=== PATIENT | male | born 1980 | race Caucasian/White ===

== ENCOUNTER 2017-06-15 09:02 | Observation (INO) | payer BC ==
[2017-06-15] MEDS ORDERED: ASPIRIN 81 MG CHEWABLE TABLET ONE (09:27)
--- NOTE | 2017-06-15 09:38 | RAD REPORT ---
EXAM DESCRIPTION: RAD - Chest Single View - 06/15/2017 9:28 am CLINICAL HISTORY: Chest pain. COMPARISON: 02/19/2017 FINDINGS: Portable technique limits examination quality. The lungs are grossly clear. The heart is normal in size. No displaced fractures. IMPRESSION: No acute intrathoracic process suspected.
--- NOTE | 2017-06-15 09:49 | EKG ---
Test Date: 2017-06-15 Test Time: 09:37:11 Applications Engineer: JASS MEASUREMENT RESULTS: Intervals: Rate: 105 VT: 140 QRSD: 86 QT: 342 QTc: 452 [place]: P: 34 VT: 140 QRS: 13 T: 16 INTERPRETIVE STATEMENTS: Sinus tachycardia Otherwise normal ECG Compared to ECG 08/19/2015 01:58:03 Sinus rhythm no longer present Sinus arrhythmia no longer present Electronically Signed On 06-15-17 09:48:43 CDT by Ez Salmon
[2017-06-15 09:50] LABS: Absolute Monocytes 0.6 K/uL (0.1-1.3); Absolute Neutrophil 4.5 K/uL (1.8-8.0); Basophils % 0.8 % (0-1.3); Hematocrit 44.8 % (39.6-49.0); Lymphocytes % 27.6 % (15.3-44.8); MCH 29.5 pg (27.0-35.0); MCV 90.3 fL (80-100); MPV 10.7 fL (7.6-11.3); Monocytes % 7.9 % (3.3-12.3); RBC Red Blood Cell Count 4.97 M/uL (4.33-5.43)
[2017-06-15 10:04] LABS: Bicarbonate 25 mEq/L (21-31); Glucose Level 102 mg/dL (65-120); Sodium Level 140 mEq/L (135-145)
[2017-06-15] MEDS ORDERED: NITROGLYCERIN 0.4 MG/TAB SL ONE (10:08)
[2017-06-15 10:10] LABS: ALT/SGPT 38 IU/L (10-60); AST/SGOT 24 IU/L (10-42); Albumin 4.2 g/dL (3.2-5.5); Alkaline Phosphatase 79 IU/L (42-121); BUN Blood Urea Nitrogen 19 mg/dL (6-20); Bilirubin Direct < 0.1 mg/dL (0-0.2); Bilirubin Total 0.4 mg/dL (0.3-1.2); Magnesium 1.9 mg/dL (1.8-2.5); Protein, Total 7.7 g/dL (6.0-8.3)
[2017-06-15 10:16] LABS: Protime INR 0.87
[2017-06-15] MEDS ORDERED: ACETAMINOPHEN 500 MG TAB PO PRN (11:37)
[2017-06-15] MEDS ORDERED: ONDANSETRON 4 MG/2 ML VIAL IV PRN (11:37)
--- NOTE | 2017-06-15 11:39 | EDPHYS ---
Physician Documentation [facility] Name: Kem Liz Age: 37 yrs Sex: Male : 1980 Arrival Date: 06/15/2017 Time: 09:03 Bed 8 Private MD: Johnathan Calle S ED Physician Pasha Silva HPI: 06/15 09:34 This 37 yrs old Male presents to ER via Wheelchair with complaints of Chest jr8 Pain. 09:34 The patient or guardian reports chest pain that is located primarily in the substernal jr8 area. The pain radiates to the left arm. Associated signs and symptoms: Pertinent positives: diaphoresis. The chest pain is described as squeezing. Duration: The patient or guardian reports a single episode, that is still ongoing. Modifying factors: The symptoms are alleviated by nothing. the symptoms are aggravated by activity. Severity of pain: At its worst the pain was moderate in the emergency department the pain is unchanged. The patient has not experienced similar symptoms in the past. The patient has not recently seen a physician. chest pain that started around 8 am this morning with radiation. Minimal relief with rest . Historical: - Allergies: 09:10 NKA; iw - Home Meds: 09:10 lisinopril 10 mg Oral tab 1 tab once daily [Active]; atorvastatin 10 mg Oral tab 1 tab iw once daily [Active]; - PMHx: 09:10 Hyperlipidemia; Hypertension; iw - PSHx: 09:10 right shoulder; iw - Immunization history:: Adult Immunizations not up to date. - Social history:: Smoking status: Patient/guardian denies using tobacco. ROS: 09:34 Eyes: Negative for injury, pain, redness, and discharge, ENT: Negative for injury, jr8 pain, and discharge, Neck: Negative for injury, pain, and swelling, Respiratory: Negative for shortness of breath, cough, wheezing, and pleuritic chest pain, Abdomen/GI: Negative for abdominal pain, nausea, vomiting, diarrhea, and constipation, Back: Negative for injury and pain, MS/Extremity: Negative for injury and deformity, Skin: Negative for injury, rash, and discoloration, Neuro: Negative for headache, weakness, numbness, tingling, and seizure. 09:34 Cardiovascular: Positive for chest pain, Negative for edema, orthopnea, palpitations, paroxysmal nocturnal dyspnea. Exam: 09:34 Eyes: Pupils equal round and reactive to light, extra-ocular motions intact. Lids and jr8 lashes normal. Conjunctiva and sclera are non-icteric and not injected. Cornea within normal limits. Periorbital areas with no swelling, redness, or edema. ENT: Nares patent. No nasal discharge, no septal abnormalities noted. Tympanic membranes are normal and external auditory canals are clear. Oropharynx with no redness, swelling, or masses, exudates, or evidence of obstruction, uvula midline. Mucous membranes moist. Neck: Trachea midline, no thyromegaly or masses palpated, and no cervical lymphadenopathy. Supple, full range of motion without nuchal rigidity, or vertebral point tenderness. No Meningismus. Respiratory: Lungs have equal breath sounds bilaterally, clear to auscultation and percussion. No rales, rhonchi or wheezes noted. No increased work of breathing, no retractions or nasal flaring. Abdomen/GI: Soft, non-tender, with normal bowel sounds. No distension or tympany. No guarding or rebound. No evidence of tenderness throughout. Back: No spinal tenderness. No costovertebral tenderness. Full range of motion. Skin: Warm, dry with normal turgor. Normal color with no rashes, no lesions, and no evidence of cellulitis. MS/ Extremity: Pulses equal, no cyanosis. Neurovascular intact. Full, normal range of motion. Neuro: Awake and alert, GCS 15, oriented to person, place, time, and situation. Cranial nerves II-XII grossly intact. Motor strength 5/5 in all extremities. Sensory grossly intact. Cerebellar exam normal. Normal gait. 09:34 Cardiovascular: Rate: tachycardic, Rhythm: regular, Pulses: Pulses are 2+ in right radial artery and left radial artery. Heart sounds: normal, normal S1and S2, no S3 or S4, no murmur, no rub, no gallop, Edema: is not appreciated, JVD: is not appreciated. Vital Signs: 09:10 BP 148 / 94; Pulse 115; Resp 18 S; Temp 98.1(TE); Pulse Ox 96% on R/A; Weight 113.4 kg; iw Height 5 ft. 11 in. (180.34 cm); Pain 7/10; 09:30 BP 154 / 104; Pulse 105; Resp 16 S; Pulse Ox 96% on R/A; jl7 10:00 BP 146 / 102; Pulse 96; Resp 16 S; Pulse Ox 95% on R/A; jl7 10:20 BP 131 / 81; Pulse 97; Resp 12; Pulse Ox 96% ; Pain 3/10; jl7 11:31 BP 131 / 84; Pulse 80; Resp 20 S; Pulse Ox 99% on R/A; jl7 09:10 Body Mass Index 34.87 (113.40 kg, 180.34 cm) iw MDM: 09:14 Patient medically screened. jr8 11:34 HEART Score: History: Highly Suspicious (2), ECG: Normal (0), Age: < or = 45 years (0), jr8 Risk Factors: 1 or 2 risk factors (1), [Hypercholesterolemia] [Hypertension]. 11:36 Data reviewed: vital signs, nurses notes, lab test result(s), EKG, radiologic studies, jr8 plain films, and as a result, I will admit patient. Data interpreted: Pulse oximetry: on room air is 99 %. Interpretation: normal. Counseling: I had a detailed discussion with the patient and/or guardian regarding: the historical points, exam findings, and any diagnostic results supporting the discharge/admit diagnosis, lab results, radiology results, the need for further work-up and treatment in the hospital. Physician consultation: Ekta Diaz MD was called at 11:37, was contacted at 11:37, regarding admission, to the telemetry unit. consult, patient's condition, and will see patient. 06/15 09:15 Order name: Ptt, Activated; Complete Time: 10:36 06/15 09:15 Order name: Basic Metabolic Panel; Complete Time: 10:10 06/15 09:15 Order name: BNP; Complete Time: 10:36 06/15 09:15 Order name: CBC with Diff; Complete Time: 10:10 06/15 09:15 Order name: LFT's; Complete Time: 10:10 06/15 09:15 Order name: Magnesium; Complete Time: 10:10 06/15 09:15 Order name: PT-INR; Complete Time: 10:36 06/15 09:15 Order name: Troponin (emerg Dept Use Only); Complete Time: 10:43 06/15 09:15 Order name: XRAY Chest (1 view); Complete Time: 09:38 rust 06/15 09:15 Order name: EKG; Complete Time: 09:15 rust 06/15 11:39 Order name: Echo with Doppler [facility] 06/15 11:39 Order name: Urinalysis [facility] 06/15 09:15 Order name: Cardiac monitoring; Complete Time: 09:20 rust 06/15 09:15 Order name: EKG - Nurse/Tech; Complete Time: 09:52 rust 06/15 09:15 Order name: IV Saline Lock; Complete Time: :52 rust 06/15 09:15 Order name: Labs collected and sent; Complete Time: : rust 06/15 09:15 Order name: O2 Per Protocol; Complete Time: 09:21 rust 06/15 09:15 Order name: O2 Sat Monitoring; Complete Time: 09:21 rust 06/15 11:39 Order name: Heart Healthy EDPR Administered Medications: 09:29 Drug: Aspirin Chewable Tablet 324 mg Route: PO; jl7 10:17 Follow up: Response: No adverse reaction jl7 10:11 Drug: Nitroglycerin 0.4 mg Route: Sublingual; jl7 10:16 Follow up: Response: No adverse reaction; Pain is decreased jl7 Disposition: 06/15/17 11:39 Hospitalization ordered by Ekta Diaz for Observation. Preliminary diagnosis is Chest pain, unspecified. - Bed requested for Telemetry/MedSurg (observation). - Status is Observation. pt - Condition is Stable. - Problem is new. - Symptoms have improved. UTI on Admission? No Addendum: 06/18/2017 06:10 Co-signature as Attending Physician, Pasha Silva MD Available for consultation at p s1 all times. . Signatures: Dispatcher [employer] EDPR Shandra Dai RN RN pt Charity Vyas RN Carlos Reis PA PA jr8 Willy Grimes RN RN jl7 Pasha Silva MD MD [facility] Juan Mccrary [facility]
--- NOTE | 2017-06-15 11:39 | ER ---
Nurse's Notes [facility] Name: Kem Liz Age: 37 yrs Sex: Male : 1980 Arrival Date: 06/15/2017 Time: 09:03 Bed 8 Private MD: Johnathan Calle S Diagnosis: Chest pain, unspecified Presentation: 06/15 09:06 Presenting complaint: Patient states: has had left sided chest pain X 1-2 hours iw constant, feels like squeezing pain, radiates to left arm, rates pain 7/10, denies cardiac hx. Transition of care: patient was not received from another setting of care. Onset of symptoms was June 15, 2017. Initial Sepsis Screen: Does the patient meet any 2 criteria? No. Patient's initial sepsis screen is negative. Does the patient have a suspected source of infection? No. Patient's initial sepsis screen is negative. Care prior to arrival: None. 09:06 Method Of Arrival: Wheelchair iw 09:06 Acuity: CHARLEEN 3 iw Historical: - Allergies: 09:10 NKA; iw - Home Meds: 09:10 lisinopril 10 mg Oral tab 1 tab once daily [Active]; atorvastatin 10 mg Oral tab 1 tab iw once daily [Active]; - PMHx: 09:10 Hyperlipidemia; Hypertension; iw - PSHx: 09:10 right shoulder; iw - Immunization history:: Adult Immunizations not up to date. - Social history:: Smoking status: Patient/guardian denies using tobacco. Screenin:23 Abuse screen: Denies threats or abuse. Denies injuries from another. Nutritional jl7 screening: No deficits noted. Tuberculosis screening: No symptoms or risk factors identified. Fall Risk IV access (20 points). Total Clark Fall Scale indicates No Risk (0-24 pts). Assessment: 09:23 General: Appears in no apparent distress. uncomfortable, Behavior is calm, cooperative, jl7 appropriate for age. Pain: Complains of pain in anterior aspect of left upper chest Pain radiates to left arm Pain currently is 5 out of 10 on a pain scale. at worst was 7 out of 10 on a pain scale. Quality of pain is described as squeezing, Pain began 30 min ago. Is intermittent. Neuro: Level of Consciousness is awake, alert, obeys commands, Oriented to person, place, time, situation. Cardiovascular: Heart tones S1 S2 present Patient's skin is warm and dry. Rhythm is sinus tachycardia. Respiratory: Reports shortness of breath Airway is patent Respiratory effort is even, unlabored, Respiratory pattern is regular, symmetrical, Breath sounds are clear bilaterally. the patient has mild shortness of breath. GI: No signs and/or symptoms were reported involving the gastrointestinal system. : No signs and/or symptoms were reported regarding the genitourinary system. EENT: No signs and/or symptoms were reported regarding the EENT system. Derm: Skin is pink, warm \T\ dry. Musculoskeletal: No signs and/or symptoms reported regarding the musculoskeletal system. 10:16 Reassessment: Patient states feeling better. Patient states symptoms have improved. jl7 11:15 Reassessment: No changes from previously documented assessment. Patient and/or family jl7 updated on plan of care and expected duration. Pain level reassessed. Patient is alert, oriented x 3, equal unlabored respirations, skin warm/dry/pink. Vital Signs: 09:10 BP 148 / 94; Pulse 115; Resp 18 S; Temp 98.1(TE); Pulse Ox 96% on R/A; Weight 113.4 kg; iw Height 5 ft. 11 in. (180.34 cm); Pain 7/10; 09:30 BP 154 / 104; Pulse 105; Resp 16 S; Pulse Ox 96% on R/A; jl7 10:00 BP 146 / 102; Pulse 96; Resp 16 S; Pulse Ox 95% on R/A; jl7 10:20 BP 131 / 81; Pulse 97; Resp 12; Pulse Ox 96% ; Pain 3/10; jl7 11:31 BP 131 / 84; Pulse 80; Resp 20 S; Pulse Ox 99% on R/A; jl7 09:10 Body Mass Index 34.87 (113.40 kg, 180.34 cm) iw ED Course: 09:03 Patient arrived in ED. mr 09:03 Johnathan Calle MD is Private Physician. mr 09:09 Triage completed. iw 09:10 Arm band placed on. iw 09:14 Carlos Fuentes PA is PHCP. jr8 09:14 Pasha Silva MD is Attending Physician. jr8 09:23 Willy Grimes RN is Primary Nurse. jl7 09:23 Patient has correct armband on for positive identification. Placed in gown. Bed in low jl7 position. Call light in reach. Side rails up X 1. athletic monitor on. Pulse ox on. NIBP on. 09:23 Patient maintains SpO2 saturation greater than 95% on room air. jl7 09:26 X-ray completed. Portable x-ray completed in exam room. Patient tolerated procedure sw well. 09:27 XRAY Chest (1 view) In Process Unspecified. EDMS 09:30 Initial lab(s) drawn, by me, sent to lab. jb1 09:48 EKG done, by shift lab technician. reviewed by Carlos TELLES. at1 09:51 Inserted saline lock: 20 gauge in right antecubital area, using aseptic technique. jb1 Blood collected. 11:37 Ekta Diaz MD is Hospitalizing Provider. jr8 Administered Medications: 09:29 Drug: Aspirin Chewable Tablet 324 mg Route: PO; jl7 10:17 Follow up: Response: No adverse reaction jl7 10:11 Drug: Nitroglycerin 0.4 mg Route: Sublingual; jl7 10:16 Follow up: Response: No adverse reaction; Pain is decreased jl7 Outcome: 11:39 Decision to Hospitalize by Provider. jr8 12:42 Admitted to Tele accompanied by tech, via wheelchair, with chart. iw 12:52 Patient left the ED. pt Signatures: Dispatcher [employer] EDKem Porras jb1 Shandra Dai, RN RN pt Susie Wei Irene, RN Carlos Reis PA PA jr8 Tanya gutierrez, marketing officer EKG Tania Duncan Jahala, RN RN jl7
--- NOTE | 2017-06-15 14:31 | ECHO ---
HEIGHT: 5 ft 11 in WEIGHT: 258 lb 0 oz DATE OF STUDY: 06/15/[address]: Ekta Diaz MD 2-DIMENSIONAL: YES M.MODE: YES DOPPLER: YES COLOR FLOW: YES TDS: NO PORTABLE: NO DEFINITY: NO BUBBLE STUDY: NO DIAGNOSIS: CHEST PAIN, SHORTNESS OF BREATH CARDIAC HISTORY: CATHERIZATION: NO SURGERY: NO PROSTHETIC VALVE: NO PACEMAKER: NO MEASUREMENTS (cm) DIASTOLIC (NORMALS) SYSTOLIC (NORMALS) IVSd 1.0 (0.6-1.2) LA Diam 3.6 (1.9-4.0) LVEF 54% LVIDd 4.9 (3.5-5.7) LVIDs 3.5 (2.0-3.5) %FS 28% LVPWd 0.9 (0.6-1.2) Ao Diam 3.3 (2.0-3.7) 2 DIMENSIONAL ASSESSMENT: RIGHT ATRIUM: NORMAL LEFT ATRIUM: NORMAL RIGHT VENTRICLE: NORMAL LEFT VENTRICLE: NORMAL TRICUSPID VALVE: NORMAL MITRAL VALVE: NORMAL PULMONIC VALVE: NORMAL AORTIC VALVE: NORMAL PERICARDIAL EFFUSION: NONE AORTIC ROOT: NORMAL LEFT VENTRICULAR WALL MOTION: NORMAL DOPPLER/COLOR FLOW: NORMAL COMMENTS: NORMAL 2D ECHOCARDIOGRAM WITH DOPPLER. TECHNOLOGIST: Ailin COLEMAN
--- NOTE | 2017-06-15 14:35 | TREADMILL ---
70% H.R.: 127 85% H.R.: 154 90% H.R.: 163 100% H.R.: 181 DX: CHEST PAIN, SHORTNESS OF BREATH Date of Study: 06/15/2017 Ht: 5' 11 " Wt: 258 lb 0 oz Consulting Physician: RANGEL MEDICATIONS: BLOOD PRESSURE MEDICATION. HISTORY: 37 YEAR OLD MALE WITH COMPLAINTS OF CHEST PAIN. HISTORY OF HYPERTENSION, HIGH CHOLESTEROL, FORMER SMOKER. PHYSICIAL EXAMINATION: RESTING B.P.: 152/113 RESTING H.R.: 87 RESTING EKG: NORMAL PROTOCOL: MARÍA ROUTINE EXERCISE TIME: 6:49 MAXIMUM HEART RATE: 160 % OF PREDICTED B.P. AT PEAK STRESS: 161/95 H.R. AT 1 MINUTE POST EXERCISE: 136 IMPRESSION: ROUTINE MARÍA STRESS TEST STOPPED DUE TO FATIGUE AND TARGET HEART RATE BEING REACHED. NO CHEST PAIN. NO SUPRAVENTRICULAR TACHYCARDIA. NO VENTRICULAR TACHYCARDIA. NO ST DEPRESSION. NORMAL STRESS TEST.
--- NOTE | 2017-06-15 17:33 | P.SSS ---
Patient History Date of Service: 06/15/17 Primary Care Provider: Dr Hui Reason for admission: Chest Pain History of Present Illness: 37-year-old male with known history of hypertension and hyperlipidemia who is noncompliant with his medication who presented to the ED complaining of having some chest pain. Patient stated that around 8 o'clock he was trying to move certain things in his car and started noticing that he had chest pain that was pressure-like and radiated to his right arm along with sweating. Patient stated that the pain was 7/10 and became 10/10 on presentation to the ER. Patient was given nitroglycerin in the ER and the pain going down to 2 here in the hospital. On presentation to the ER patient also had blood pressure that was elevated to 154/104 and heart rate of 105 to 115. Patient was thus referred for admission to the medical team for further management. Patient's initial EKG and troponins were negative in the ER. Patient denies having a history of smoking alcohol and drugs at this time. Allergies No Known Allergies Allergy (Unverified 08/20/15 03:59) Home Medications: Aspirin 81 mg PO DAILY #30 tab.chew 06/15/17 Atorvastatin Calcium [Lipitor] 40 mg PO BEDTIME #30 tab 06/15/17 Lisinopril 5 mg PO DAILY #30 tablet 06/15/17 Metoprolol Tartrate [Lopressor*] 12.5 mg PO [id number] #30 tab 06/15/17 - Past Medical/Surgical History Has patient received pneumonia vaccine in the past: No Diabetic: No -: HTN -: high cholesterol -: shoulder surgery - Family History Father -: Cancer Mother -: Lung disease - Social History Smoking Status: Former smoker Alcohol use: Yes CD- Drugs: No Place of Residence: Home Review of Systems 10-point ROS is otherwise unremarkable Physical Examination - Vital Signs Temperature: 98.7 F Blood Pressure: 102/64 Pulse: 72 Respirations: 23 Pulse Ox (%): 98 - Physical Exam General: Alert, In no apparent distress HEENT: Atraumatic, PERRLA, Mucous membr. moist/pink, EOMI, Sclerae nonicteric Neck: Supple, 2+ carotid pulse no bruit, No LAD, Without JVD or thyroid abnormality Respiratory: Clear to auscultation bilaterally, Normal air movement Cardiovascular: Regular rate/rhythm, Normal S1 S2 Gastrointestinal: Normal bowel sounds, No tenderness Musculoskeletal: No tenderness Integumentary: No rashes Neurological: Normal gait, Normal speech, Normal strength at 5/5 x4 extr, Normal tone, Normal affect Lymphatics: No axilla or inguinal lymphadenopathy - Studies Laboratory Data (last 24 hrs) 06/15/17 09:30: WBC 7.2, Hgb 14.7, Hct 44.8, Plt Count 163 06/15/17 09:30: B-Natriuretic Peptide < 10 06/15/17 09:30: Sodium 140, Potassium 4.0, BUN 19, Creatinine 0.88, Glucose 102 , Magnesium 1.9, Total Bilirubin 0.4, AST 24, ALT 38, Alkaline Phosphatase 79 06/15/17 09:30: PT 10.2, INR 0.87, APTT 31.0 - Diagnosis (Problem(s)) (1) Chest pain Status: Resolved Qualifiers: Chest pain type: other chest pain Qualified Code(s): R07.89 - Other chest pain; R07.8 - Other chest pain (2) HTN (hypertension) Status: Chronic Qualifiers: Hypertension type: essential hypertension Qualified Code(s): I10 - Essential (primary) hypertension (3) Hyperlipidemia Status: Chronic Qualifiers: Hyperlipidemia type: mixed hyperlipidemia Qualified Code(s): E78.2 - Mixed hyperlipidemia Treatment Summary: Overall during the hospital stay patient remained stable The patient was admitted to the hospital for ACS rule out. Patient had an echocardiogram done along with stress test treadmill. Both of which were within normal limits. After the initial nitroglycerin tablets patient blood pressure also normalized and heart rate was back to less than 100. Patient EKG still remain normal and troponin x2 was negative. At that time the decision was made to discharge the patient under stable condition. Patient was asked to take aspirin, Lipitor 40 mg, metoprolol 12.5 mg daily, lisinopril 5 mg daily from now on. Patient was educated extensively on medication compliance and was asked to follow up with primary care doctor in about 1-2 weeks. Patient demonstrated understanding and thus was discharged home under stable condition - Disposition Disposition: ROUTINE DISCHARGE Condition: GOOD Patient Discharge Instructions: Please f/u with PCP in 1 to 2 weeks post discharge. You were admitted to the hospital for Chest pain and had echo and stress test done. Both of which were Negative. New medication. ASA 81mg daily. Lipitor 40mg daily. metoprolol 12.5mg daily. Lisinopril 5mg daily. You will f/u with PCP and he will be adjusting your medication based on your BP in the office. Diet: Regular Activity: Ad david
[2017-06-15] MEDS ORDERED: ATORVASTATIN 40 MG TAB PO SCH (21:00)
[2017-06-16] MEDS ORDERED: METOPROLOL TAR 25 MG TAB PO SCH (06:00)
[2017-06-16] MEDS ORDERED: ASPIRIN EC 81 MG TAB PO SCH (09:00)
[2017-06-16 12:10] LABS: A1c Component 0.57 mg/dL; Hemoglobin A1c 5.7 % (4-6.0)
== END 2017-06-15 15:42 | disposition home or self-care (01) ==
LOC: ER 09:02 → ERHOLD 11:40 → 2ND 13:21
PROVIDERS: ADMIT Family Medicine; ATTEND Family Medicine
DX: R07.9 Chest pain, unspecified (principal); I10 Essential (primary) hypertension; E78.5 Hyperlipidemia, unspecified; Z91.14 Patient's other noncompliance with medication regimen; Z79.82 Long term (current) use of aspirin; Z87.891 Personal history of nicotine dependence
CPT/HCPCS: 36415; 71045; 80048; 80061; 80076; 83036; 83735; 83880; 84484; 85025; 85610; 85730; 93005; 93017; 93306; 99285; G0378

== ENCOUNTER 2017-07-21 16:00 | Emergency (ER) | payer BC ==
[2017-07-21] MEDS ORDERED: LIDOCAINE 1% 20 ML MDV ONE (20:15)
[2017-07-21] MEDS ORDERED: TETANUS & DIPHTHERIA TOX,ADULT 0.5 ML VIAL ONE (20:15)
--- NOTE | 2017-07-21 21:22 | ER ---
Nurse's Notes [facility] Name: Kem Liz Age: 37 yrs Sex: Male : 1980 Arrival Date: 07/21/2017 Time: 16:03 Bed 11 Private MD: Landno Diaz Diagnosis: Laceration without foreign body of right hand Presentation: 07/21 16:10 Presenting complaint: Patient states: Laceration to back of right hand while washing aj dishes, just [employer]. Transition of care: patient was not received from another setting of care. Complicating Factors: There are no complicating factors for this patient. Onset of symptoms was July 21, 2017. Care prior to arrival: None. 16:10 Method Of Arrival: Ambulatory aj 16:10 Acuity: CHARLEEN 4 aj 21:52 Risk Assessment: Do you want to hurt yourself or someone else? Patient reports no bb desire to harm self or others. Initial Sepsis Screen: Does the patient meet any 2 criteria? No. Patient's initial sepsis screen is negative. Does the patient have a suspected source of infection? No. Patient's initial sepsis screen is negative. Triage Assessment: 16:12 General: Appears in no apparent distress. comfortable, Behavior is calm, cooperative, aj appropriate for age. Pain: Complains of pain in dorsum of right hand. Neuro: Level of Consciousness is awake, alert, obeys commands, Oriented to person, place, time, situation, Appropriate for age. Respiratory: Airway is patent Respiratory effort is even, unlabored, Respiratory pattern is regular, symmetrical. Derm: Skin is intact, is healthy with good turgor, Skin is pink, warm \T\ dry. normal. Injury Description: Laceration sustained to dorsum of right hand is 0.5 to 2.5 cm long. Historical: - Allergies: 16:12 NKA; aj - Home Meds: 16:12 atorvastatin 10 mg Oral tab 1 tab once daily [Active]; lisinopril 10 mg Oral tab 1 tab aj once daily [Active]; Metoprolol Tartrate Oral [Active]; - PMHx: 16:12 Hypertension; Hyperlipidemia; aj - PSHx: 16:12 right shoulder; aj - Immunization history:: Last tetanus immunization: unknown. - Social history:: The patient lives at home, Smoking status: unknown. - Ebola Screening: : No symptoms or risks identified at this time. Screenin:52 Abuse screen: Denies threats or abuse. Nutritional screening: No deficits noted. bb Tuberculosis screening: No symptoms or risk factors identified. Fall Risk None identified. Assessment: 19:09 Reassessment: see triage. aj 19:51 Reassessment: Patient is alert, oriented x 3, equal unlabored respirations, skin bb warm/dry/pink. pt has lac to right hand cleansed with soap and water covered with moist dressing awaiting laceration repair. 19:51 Injury Description: Laceration sustained to outer aspect of right palm. bb 19:51 Musculoskeletal: No deficits noted. bb 21:51 Reassessment: Patient and/or family updated on plan of care and expected duration. Pain bb level reassessed. Patient is alert, oriented x 3, equal unlabored respirations, skin warm/dry/pink. pt wound with sutures intact covered with non-adherant dressing and kerlex pt verbalized understanding of and agrees to plan of care discharge instructions given pt ambulated with steady gait to exit. Vital Signs: 16:12 BP 145 / 92; Pulse 89; Resp 16; Temp 97.4; Pulse Ox 97% on R/A; Weight 117.48 kg; aj Height 5 ft. 11 in. (180.34 cm); 19:32 BP 141 / 83; Pulse 79; Resp 16; Pulse Ox 100% on R/A; Pain 4/10; mt 21:49 BP 136 / 83; Pulse 69; Resp 16; Pulse Ox 99% on R/A; mt 16:12 Body Mass Index 36.12 (117.48 kg, 180.34 cm) aj ED Course: 16:03 Patient arrived in ED. mr 16:03 Johnathan Calle MD is Private Physician. mr 16:03 Landon Diaz DO is Private Physician. mr 16:11 Triage completed. aj 16:12 Arm band placed on left wrist. Patient placed in waiting room, Patient notified of wait aj time. 19:27 Bigg Morales MD is Attending Physician. gs 19:51 Kassidy Pascal, VLA is Primary Nurse. bb 21:52 No provider procedures requiring assistance completed. Patient did not have IV access bb during this emergency room visit. 21:54 Patient has correct armband on for positive identification. 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 Lot #: [id number]. } Route: IM; Site: left deltoid; 21:41 Follow up: Response: No adverse reaction bb 20:30 Drug: Lidocaine (1 %) 5 mg/kg {Note: administered by Dr Morales to affected area.} bb Volume: 5 ml; Route: Infiltration; 21:41 Follow up: Response: No adverse reaction bb Outcome: 21:21 Discharge ordered by . leonardo 21:52 Discharged to home ambulatory. bb 21:52 Condition: stable 21:52 Discharge instructions given to patient, Instructed on discharge instructions, follow up and referral plans. wound care, Demonstrated understanding of instructions, follow-up care, wound care. 21:55 Patient left the ED. bb Signatures: Tanya Madden RN RN aj Rivera, Maria mr Ballard, Brenda, RN RN bb Thompson, Moriah mt Starr, Gregory, MD MD gs
--- NOTE | 2017-07-21 21:22 | EDPHYS ---
Physician Documentation [facility] Name: Kem Liz Age: 37 yrs Sex: Male : 1980 Arrival Date: 07/21/2017 Time: 16:03 Bed 11 Private MD: Joe [facility] ED Physician Bigg Morales HPI: 07/21 21:12 This 37 yrs old Male presents to ER via Ambulatory with complaints of gs Laceration To Hand. 21:12 The patient has a laceration occurred. The laceration(s) is(are) located on the outer gs aspect of right palm. Onset: The symptoms/episode began/occurred acutely, just prior to arrival. Associated signs and symptoms: Pertinent negatives: deformity, heavy bleeding, numbness distal to injury. The patient has not experienced similar symptoms in the past. The patient has not recently seen a physician. Historical: - Allergies: 16:12 NKA; aj - Home Meds: 16:12 atorvastatin 10 mg Oral tab 1 tab once daily [Active]; lisinopril 10 mg Oral tab 1 tab aj once daily [Active]; Metoprolol Tartrate Oral [Active]; - PMHx: 16:12 Hypertension; Hyperlipidemia; aj - PSHx: 16:12 right shoulder; aj - Immunization history:: Last tetanus immunization: unknown. - Social history:: The patient lives at home, Smoking status: unknown. - Ebola Screening: : No symptoms or risks identified at this time. ROS: 21:12 All other systems are negative. gs Exam: 21:12 Eyes: Pupils equal round and reactive to light, extra-ocular motions intact. Lids and gs lashes normal. Conjunctiva and sclera are non-icteric and not injected. Cornea within normal limits. Periorbital areas with no swelling, redness, or edema. Cardiovascular: Regular rate and rhythm with a normal S1 and S2. No gallops, murmurs, or rubs. Normal PMI, no JVD. No pulse deficits. Respiratory: Lungs have equal breath sounds bilaterally, clear to auscultation and percussion. No rales, rhonchi or wheezes noted. No increased work of breathing, no retractions or nasal flaring. Skin: Warm, dry with normal turgor. Normal color with no rashes, no lesions, and no evidence of cellulitis. Neuro: Awake and alert, GCS 15, oriented to person, place, time, and situation. Cranial nerves II-XII grossly intact. Motor strength 5/5 in all extremities. Sensory grossly intact. Cerebellar exam normal. Normal gait. 21:12 Musculoskeletal/extremity: Extremities: laceration, rom nl no tendon involvement lac doesn't extend through sub q, Pulses: are normal with no appreciated deficits, Sensation intact. 21:12 Skin: injury, laceration(s), the wound is approximately 3 cm(s), with a depth of 0.25 cm(s), of the outer aspect of right palm. Vital Signs: 16:12 BP 145 / 92; Pulse 89; Resp 16; Temp 97.4; Pulse Ox 97% on R/A; Weight 117.48 kg; aj Height 5 ft. 11 in. (180.34 cm); 19:32 BP 141 / 83; Pulse 79; Resp 16; Pulse Ox 100% on R/A; Pain 4/10; mt 21:49 BP 136 / 83; Pulse 69; Resp 16; Pulse Ox 99% on R/A; mt 16:12 Body Mass Index 36.12 (117.48 kg, 180.34 cm) aj MDM: 19:56 Patient medically screened. gs 21:12 Data reviewed: vital signs, nurses notes. Response to treatment: the patient's symptoms gs have markedly improved after treatment. 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 Lot #: [id number]. } Route: IM; Site: left deltoid; 21:41 Follow up: Response: No adverse reaction bb 20:30 Drug: Lidocaine (1 %) 5 mg/kg {Note: administered by Dr Morales to affected area.} bb Volume: 5 ml; Route: Infiltration; 21:41 Follow up: Response: No adverse reaction bb Disposition: 07/21/17 21:21 Discharged to Home. Impression: Laceration without foreign body of right hand. - Condition is Stable. - Discharge Instructions: Laceration Care, Adult. - Work release form, Medication Reconciliation Form, Thank You Letter, Antibiotic Education, Prescription Opioid Use form. - Follow up: Private Physician; When: 7 - 10 days; Reason: Staple/Suture removal. Signatures: Tanya Madden RN Kassidy Damico RN RN bb Starr, Gregory, MD MD gs Corrections: (The following items were deleted from the chart) 20:12 20:12 Tetanus-Diphtheria Toxoid Adult 0.5 ml IM once ordered. heydi soliz 21:55 21:21 07/21/2017 21:21 Discharged to Home. Impression: Laceration without foreign body bb of right hand. Condition is Stable. Forms are Medication Reconciliation Form, Thank You Letter, Antibiotic Education, Prescription Opioid Use. Follow up: Private Physician; When: 7 - 10 days; Reason: Staple/Suture removal. gs
== END 2017-07-21 21:55 | disposition home or self-care (01) ==
LOC: ER 16:00
DX: S61.411A Laceration without foreign body of right hand, initial encounter (principal); W26.9XXA Contact with unspecified sharp object(s), initial encounter; Y93.89 Activity, other specified; Y92.000 Kitchen of unspecified non-institutional (private) residence as the place of occurrence of the external cause
CPT/HCPCS: 90714; 99283

== ENCOUNTER 2018-04-07 22:03 | Emergency (ER) | payer BC ==
--- OUTSIDE RECORDS SUMMARY | 2018-04-07 22:04 | XMS REPORT ---
:1980 Author Organization [employer] Care Team Providers Name Role Phone Joe Landon Provider Role Unavailable Allergies No Known Allergies Problems Problem Type Condition Code Onset Dates Condition Status Problem GERD without esophagitis K21.9 Active Problem Migraine without aura and without G43.009 Active status migrainosus, not intractable Problem Mixed hyperlipidemia E78.2 Active Problem Adult BMI 36.0-36.9 kg/sq m Z68.36 Active Assessment Laceration of right hand without S61.411D Active foreign body, subsequent encounter Problem HTN, goal below 140/90 I10 Active Problem Former heavy tobacco smoker Z87.891 Active Medications Medication Code Code Instructions Start End Status Dosage System Date Date Metoprolol [facility] 88559209441 25 MG Orally Active 0.5 Tartrate Once a day tablet with food Atorvastatin [facility] 04525379530 40 MG Orally Active 1 tablet Calcium Once a day Lisinopril [facility] 71912703025 5 MG Orally Once Active 1 tablet a day Aspir-81 [facility] 40650083662 81 MG Orally Active 1 tablet Once a day Results No Known Results Summary Purpose [employer] Submission
[2018-04-07 22:51] LABS: Absolute Lymphocytes (CBC) 2.2 K/uL (0.7-4.9); Absolute Monocytes 0.7 K/uL (0.1-1.3); Absolute Neutrophil 4.6 K/uL (1.8-8.0); Basophils % 0.5 % (0-1.3); Eosinophils % 1.1 % (0-4.4); Lymphocytes % 28.3 % (15.3-44.8); MPV 11.2 fL (7.6-11.3); Monocytes % 9.7 % (3.3-12.3); RBC Red Blood Cell Count 4.88 M/uL (4.33-5.43)
[2018-04-07 23:06] LABS: ALT/SGPT 39 U/L (12-78); AST/SGOT 24 U/L (15-37); Albumin 3.5 g/dL (3.4-5.0); Alkaline Phosphatase 92 U/L (45-117); BUN Blood Urea Nitrogen 19 mg/dL (7-18); Bicarbonate 27 mmol/L (21-32); Bilirubin Direct < 0.1 mg/dL (0-0.2); Bilirubin Total 0.2 mg/dL (0.2-1.0); Glucose Level 157 mg/dL (74-106); Lipase 103 U/L (73-393); Potassium 3.5 mmol/L (3.5-5.1); Protein, Total 7.2 g/dL (6.4-8.2); Sodium Level 144 mmol/L (136-145)
--- NOTE | 2018-04-08 01:08 | ER ---
Nurse's Notes [facility] Name: Kem Liz Age: 38 yrs Sex: Male : 1980 Arrival Date: 04/07/2018 Time: 22:06 Bed 30 Private MD: Landon Diaz Diagnosis: Pneumonia;Abdominal Pain Presentation: 04/07 22:18 Presenting complaint: Patient states: he has had rectal bleeding for several months and bb is scheduling a colonoscopy with Dr Scott on Tuesday, for the last couple of weeks he has had intermittent abdominal pain but tonight it worsened and is constant to the right lower quadrant. Transition of care: patient was not received from another setting of care. Onset of symptoms is unknown. Risk Assessment: Do you want to hurt yourself or someone else? Patient reports no desire to harm self or others. Initial Sepsis Screen: Does the patient meet any 2 criteria? No. Patient's initial sepsis screen is negative. Does the patient have a suspected source of infection? No. Patient's initial sepsis screen is negative. Care prior to arrival: None. 22:18 Method Of Arrival: Ambulatory bb 22:18 Acuity: CHARLEEN 3 bb Historical: - Allergies: 22:20 NKA; bb - Home Meds: 22:20 atorvastatin 10 mg Oral tab 1 tab once daily [Active]; lisinopril 10 mg Oral tab 1 tab bb once daily [Active]; Metoprolol Tartrate Oral [Active]; - PMHx: 22:20 Hyperlipidemia; Hypertension; bb - PSHx: 22:20 right shoulder; bb - Immunization history:: Adult Immunizations up to date, Flu vaccine is not up to date. - Social history:: Smoking status: Patient uses tobacco products, smokes one-half pack cigarettes per day, Patient uses alcohol, but reports only rare drinking. Patient/guardian denies using street drugs. - Ebola Screening: : No symptoms or risks identified at this time. Screenin:44 Abuse screen: Denies threats or abuse. Denies injuries from another. Nutritional mg2 screening: No deficits noted. Tuberculosis screening: No symptoms or risk factors identified. Fall Risk IV access (20 points). Assessment: 22:43 General: Appears in no apparent distress. comfortable, Behavior is calm, cooperative. mg2 Pain: Complains of pain in abdomen Pain does not radiate. Pain currently is 5 out of 10 on a pain scale. Quality of pain is described as aching, Pain began gradually, 2 weeks ago Is intermittent. Neuro: Level of Consciousness is awake, alert, obeys commands, Oriented to person, place, time, situation. Cardiovascular: Capillary refill < 3 seconds Patient's skin is warm and dry. Respiratory: Airway is patent Respiratory effort is even, unlabored, Respiratory pattern is regular, symmetrical. GI: Bowel sounds present X 4 quads. Abd is soft and non tender. GI: Reports lower abdominal pain. : No signs and/or symptoms were reported regarding the genitourinary system. EENT: No signs and/or symptoms were reported regarding the EENT system. Derm: Skin is intact, is healthy with good turgor, Skin is pink, warm \T\ dry. normal. Musculoskeletal: No signs and/or symptoms reported regarding the musculoskeletal system. 04/08 01:19 Reassessment: Patient denies pain at this time. mg2 Vital Signs: 04/07 22:20 BP 137 / 81; Pulse 112; Resp 16 S; Temp 99.5(O); Pulse Ox 96% on R/A; Weight 126.1 kg bb (R); Height 5 ft. 11 in. (180.34 cm) (R); Pain 4/10; 23:38 BP 118 / 75; mg2 04/08 00:37 BP 112 / 64; Pulse 90; Resp 18; Pulse Ox 97% on R/A; Pain 0/10; mg2 01:18 BP 111 / 65; Pulse 90; Resp 18; Pulse Ox 100% on R/A; Pain 0/10; mg2 04/07 22:20 Body Mass Index 38.77 (126.10 kg, 180.34 cm) ED Course: 04/07 22:06 Patient arrived in ED. es 22:06 Landon Diaz DO is Private Physician. es 22:14 Jayjay Concepcion PA is PHCP. [facility] 22:14 Koko Paniagua MD is Attending Physician. jmm 22:19 Triage completed. bb 22:20 Arm band placed on Patient placed in an exam room, on a stretcher, on pulse oximetry. bb Family accompanied patient. 22:23 Dereje Anne, RN is Primary Nurse. mg2 22:24 Radiology exam delayed due to lab results not completed at this time. (BUN/Creatinine). vm2 22:37 Radiology exam delayed due to lab results not completed at this time. (BUN/Creatinine). vm2 22:44 No provider procedures requiring assistance completed. Inserted saline lock: 22 gauge mg2 in right antecubital area, using aseptic technique. Blood collected. 22:45 Patient has correct armband on for positive identification. Door closed. mg2 23:[address] via wheelchair. kw1 02 00:11 CT completed. Patient tolerated procedure well. Patient moved back from CT. kw1 00:27 CT Abd/Pelvis - W/Contrast In Process Unspecified. EDMS 01:07 Landon Diaz DO is Referral Physician. jmm 01:19 IV discontinued, intact, bleeding controlled, No redness/swelling at site. Pressure mg2 dressing applied. Administered Medications: No medications were administered Outcome: 01:07 Discharge ordered by . jmm 01:19 Discharged to home ambulatory. mg2 01:19 Condition: stable 01:19 Discharge instructions given to patient, Instructed on discharge instructions, follow up and referral plans. medication usage, Demonstrated understanding of instructions, follow-up care, medications, Prescriptions given X 1. 01:19 Patient left the ED. mg2 Signatures: Dispatcher [employer] EDND Jayjay Concepcion PA PA Maria R Glass Brenda, RN RN Valeria Dean 2 Alicia Yeh kw1 Dereje Anne RN RN mg2
--- NOTE | 2018-04-08 01:08 | EDPHYS ---
Physician Documentation [facility] Name: Kem Liz Age: 38 yrs Sex: Male : 1980 Arrival Date: 04/07/2018 Time: 22:06 Bed 30 Private MD: Landon Diaz ED Physician Koko Paniagua HPI: 04/07 22:22 This 38 yrs old Male presents to ER via Ambulatory with complaints of jmm Abdominal Pain. 22:22 The patient presents with abdominal pain in the lower abdomen, right lower quadrant. jmm Onset: The symptoms/episode began/occurred gradually, 2 week(s) ago. Associated signs and symptoms: Pertinent positives: bleeding. This is a 38 year old male with a history of htn, hlp that presents to the ED with complaints of right lower abdominal pain for the past 2 weeks. Patient states having ongoing rectal bleeding which the patient states is being evaluated by GI. Patient also complain of a cough for the past 2 days. . Historical: - Allergies: 22:20 NKA; bb - Home Meds: 22:20 atorvastatin 10 mg Oral tab 1 tab once daily [Active]; lisinopril 10 mg Oral tab 1 tab bb once daily [Active]; Metoprolol Tartrate Oral [Active]; - PMHx: 22:20 Hyperlipidemia; Hypertension; bb - PSHx: 22:20 right shoulder; bb - Immunization history:: Adult Immunizations up to date, Flu vaccine is not up to date. - Social history:: Smoking status: Patient uses tobacco products, smokes one-half pack cigarettes per day, Patient uses alcohol, but reports only rare drinking. Patient/guardian denies using street drugs. - Ebola Screening: : No symptoms or risks identified at this time. ROS: 22:22 Cardiovascular: Negative for chest pain, palpitations, and edema. jmm 22:22 Back: Negative for injury and pain, : Negative for injury, bleeding, discharge, and swelling, Skin: Negative for injury, rash, and discoloration. 22:22 Constitutional: Positive for body aches. 22:22 ENT: Positive for sore throat. 22:22 Respiratory: Positive for cough. 22:22 Abdomen/GI: Positive for abdominal pain, rectal bleeding. 22:22 All other systems are negative. Exam: 22:22 Constitutional: This is a well developed, well nourished patient who is awake, alert, jmm and in no acute distress. Head/Face: atraumatic. Eyes: EOMI, no conjunctival erythema appreciated ENT: Moist Mucus Membranes Neck: Trachea midline, Supple Chest/axilla: Normal chest wall appearance and motion. Cardiovascular: Regular rate and rhythm. No edema appreciated Respiratory: Normal respirations, no respiratory distress appreciated 22:22 Back: Normal ROM Skin: General appearance color normal MS/ Extremity: Moves all extremities, no obvious deformities appreciated, no edema noted to the lower extremities Neuro: Awake and alert, normal gait Psych: Behavior is normal, Mood is normal, Patient is cooperative and pleasant 22:22 Abdomen/GI: Inspection: abdomen appears normal, Bowel sounds: normal, Palpation: soft, mild abdominal tenderness, in the right lower quadrant. Vital Signs: 22:20 BP 137 / 81; Pulse 112; Resp 16 S; Temp 99.5(O); Pulse Ox 96% on R/A; Weight 126.1 kg bb (R); Height 5 ft. 11 in. (180.34 cm) (R); Pain 4/10; 23:38 BP 118 / 75; mg2 0209 00:37 BP 112 / 64; Pulse 90; Resp 18; Pulse Ox 97% on R/A; Pain 0/10; mg2 01:18 BP 111 / 65; Pulse 90; Resp 18; Pulse Ox 100% on R/A; Pain 0/10; mg2 0208 22:20 Body Mass Index 38.77 (126.10 kg, 180.34 cm) bb MDM: 04/07 22:22 Patient medically screened. [facility] 04/08 01:07 Data reviewed: vital signs, nurses notes. Counseling: I had a detailed discussion with [facility] the patient and/or guardian regarding: the historical points, exam findings, and any diagnostic results supporting the discharge/admit diagnosis, lab results, radiology results, the need for outpatient follow up, to return to the emergency department if symptoms worsen or persist or if there are any questions or concerns that arise at home. ED course: Patient is alert and non toxic in appearance in the ED. Patient shows no signs of resp distress. CT findings concerning for pneumonia. CBC normal. i advised the patient to follow up with PCP early next week for reevaluation. patient is otherwise given strict return precautions for shortness of breath or worsening abdominal pain. patient understood and agrees with the plan of care. . 04/07 22:22 Order name: Basic Metabolic Panel; Complete Time: 23: [facility] 04/07 22:22 Order name: CBC with Diff; Complete Time: 23: [facility] 04/07 22:22 Order name: Creatinine for Radiology; Complete Time: 23: [facility] 04/07 22:22 Order name: Hepatic Function; Complete Time: 23: [facility] 04/07 22:22 Order name: Lipase; Complete Time: 23: [facility] 04/07 22:22 Order name: CT Abd/Pelvis - W/Contrast [facility] 04/07 22:22 Order name: IV Saline Lock; Complete Time: :34 [facility] 04/07 22:22 Order name: Labs collected and sent; Complete Time: :34 [facility] Administered Medications: No medications were administered Disposition: 03:59 Co-signature as Attending Physician, Koko Paniagua MD I agree with the assessment and pa plan of care. Disposition: 04/08/18 01:07 Discharged to Home. Impression: Pneumonia, Abdominal Pain. - Condition is Stable. - Discharge Instructions: Abdominal Pain, Adult, Community-Acquired Pneumonia, Adult. - Prescriptions for Zithromax Z- Rodrick 250 mg Oral Tablet - take 1 tablet by ORAL route as directed for 5 days Day 1 - take two (2) tablets one time. Day 2, 3, 4 , 5 take one (1) tablet once daily.; 6 tablet. - Medication Reconciliation Form, Thank You Letter, Antibiotic Education, Prescription Opioid Use form. - Follow up: Landon Diaz DO; When: 1 - 2 days; Reason: Recheck today's complaints, Continuance of care, Re-evaluation by your physician. Signatures: Dispatcher [employer] EDMS Jayjay Concepcion PA PA jmm Ballard, Brenda, RN RN bb Koko Paniagua MD MD wa Gardose, Michele, RN RN mg2 Corrections: (The following items were deleted from the chart) 01:19 01:07 04/08/2018 01:07 Discharged to Home. Impression: Pneumonia; Abdominal Pain. mg2 Condition is Stable. Forms are Medication Reconciliation Form, Thank You Letter, Antibiotic Education, Prescription Opioid Use. Follow up: Landon Diaz; When: 1 - 2 days; Reason: Recheck today's complaints, Continuance of care, Re-evaluation by your physician. loren
--- NOTE | 2018-04-10 19:36 | RAD REPORT ---
EXAM DESCRIPTION: CT - Abdomen Pelvis W Contrast - 04/08/2018 3:22 am CLINICAL HISTORY: The patient is 38 years old and is Male; abdominal pain, IV ONLY TECHNIQUE: Axial computed tomography images of the abdomen and pelvis without intravenous contrast. Sagittal and coronal reformatted images were created and reviewed. This CT exam was performed using o ne or more of the following dose reduction techniques: Automated exposure control, adjustment of the mA and/or kV according to patient size, and/or use of iterative reconstruction technique. COMPARISON: None. FINDINGS: LUNG BASES: PLEURAL SPACE: Centrilobular nodularities and tree-in-bud opacities are seen in the superior HEART: The heart is normal in size. MEDIASTINUM: Visualized mediastinum is unremarkable. ABDOMEN: LIVER: Subcentimeter hypodensity in the right hepatic dome (series 4, image 17), too small to charact erize by CT criteria, likely cyst. GALLBLADDER AND BILE DUCTS:Unremarkable. No calcified stones. No ductal dilation. PANCREAS:Unremarkable. No mass. No ductal dilation. SPLEEN: Unremarkable. No splenomegaly. ADRENALS: Unremarkable. No mass. KIDNEYS AND URETERS: Unremarkable. No solid mass. No hydronephrosis. STOMACH AND BOWEL: Unremarkable. No obstruction. No mucosal thickening. PELVIS: APPENDIX: The appendix is seen and within normal limits, BLADDER: Unremarkable. No mass. REPRODUCTIVE: Unremarkable as visualized. ABDOMEN and PELVIS: INTRAPERITONEAL SPACE: Unremarkable. No free air. No significant fluid collection. BONE/JOINTS: Multilevel degenerative disc disease and Schmorl's node deformities of the lumbar spine. No acute osseous abnormality. No dislocation. SOFT TISSUES: Small fat-containing umbilical hernia. VASCULATURE: Unremarkable. No abdominal aortic aneurysm. LYMPH NODES: Unremarkable. No enlarged lymph nodes. IMPRESSION: a. Scattered interstitial opacities and centrilobular nodularities/tree-in-bud opacities in the lung bases concerning for multifocal pneumonia. Follow-up to resolution is recommended. 2. No acute abdominal or pelvic abnormality. 3. Subcentimeter right hepatic hypodensity, likely cyst. 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 The interpreting radiologist is f ully responsible for the content of the report.
== END 2018-04-08 01:19 | disposition home or self-care (01) ==
LOC: ER 22:03
DX: J18.9 Pneumonia, unspecified organism (principal); I10 Essential (primary) hypertension; E78.5 Hyperlipidemia, unspecified; F17.210 Nicotine dependence, cigarettes, uncomplicated
CPT/HCPCS: 36415; 74177; 80048; 80076; 83690; 85025; 99284; Q9967

== ENCOUNTER → 2018-04-12 | Day surgery (SDC) | payer BC ==
[~2018-04-12] MED LIST: LIDOCAINE 1% MPF 5 ML VIAL ONE; PROPOFOL 200 MG/20 ML VIAL IV ONE; Ringers Lactate 1,000 ML IV ONE
--- OUTSIDE RECORDS SUMMARY | 2018-04-12 06:40 | XMS REPORT ---
:1980 Author Organization eClinicalWorks Care Team Providers Name Role Phone Joe Landon Provider Role Unavailable Allergies, Adverse Reactions, Alerts Substance Reaction Event Type N.K.D.A. Info Not Available Non Drug Allergy Problems Problem Type Condition Code Onset Dates Condition Status Assessment HTN, goal below 140/90 I10 Active Assessment Bright red blood per rectum K62.5 Active Assessment Hematochezia K92.1 Active Assessment GERD without esophagitis K21.9 Active Assessment Mixed hyperlipidemia E78.2 Active Problem GERD without esophagitis K21.9 Active Problem Migraine without aura and without G43.009 Active status migrainosus, not intractable Problem Mixed hyperlipidemia E78.2 Active Problem Adult BMI 36.0-36.9 kg/sq m Z68.36 Active Problem HTN, goal below 140/90 I10 Active Problem Former heavy tobacco smoker Z87.891 Active Medications Medication Code Code Instructions Start End Status Dosage System Date Date Lisinopril [facility] 02145059233 5 MG Orally Once Active 1 tablet a day Metoprolol [facility] 97317008203 25 MG Orally Active 0.5 Tartrate Once a day tablet with food Aspir-81 [facility] 08350084557 81 MG Orally Active 1 tablet Once a day Atorvastatin [facility] 66447489720 40 MG Orally Active 1 tablet Calcium Once a day Results No Known Results Summary Purpose eClinicalWorks Submission
--- OUTSIDE RECORDS SUMMARY | 2018-04-12 06:40 | XMS REPORT ---
[...] End Status Dosage System Date Date Metoprolol [facility] 94045716978 25 MG Orally Active 0.5 Tartrate Once a day tablet with food Atorvastatin [facility] 37987821966 40 MG Orally Active 1 tablet Calcium Once a day Lisinopril [facility] 39300611866 5 MG Orally Once Active 1 tablet a day Aspir-81 [facility] 40719205486 81 MG Orally Active 1 tablet Once a day Results No Known Results Summary Purpose eClinicalWorks Submission
--- NOTE | 2018-04-12 08:38 | ENDO RPT ---
[address], [address] COLONOSCOPY PROCEDURE REPORT EXAM DATE: 04/12/2018 PATIENT NAME: Kem Liz MR #: [id number] BIRTHDATE: 1980 ATTENDING: Edward Scott MD STATUS: outpatient HISTOLOGY SUPERVISOR: Lizz Dee RN, Adela Nolan, and Karen Mckeon RN INDICATIONS: The patient is a 38 yr old Male here for a colonoscopy due to rectal bleeding PROCEDURE PERFORMED: Colonoscopy with hot biopsy polypectomy MEDICATIONS: Per Anesthesia. ESTIMATED BLOOD LOSS: None CONSENT: The patient understands the risks and benefits of the procedure and understands that these risks include, but are not limited to: sedation, allergic reaction, infection, perforation and/or bleeding. Alternative means of evaluation and treatment include, among others: physical exam, x-rays, and/or surgical intervention. The patient elects to proceed with this endoscopic procedure. DESCRIPTION OF PROCEDURE: During intra-op preparation period all mechanical medical equipment was checked for proper function. Hand hygiene and appropriate measures for infection prevention was taken. Procedure, possible complications, alternatives including, but not limited to possibility of bleeding, perforation, tear, infection, sepsis, need for surgery, need for blood transfusion, were explained to the patient. After the risks, benefits and alternatives of the procedure were thoroughly explained, Informed consent was verified, confirmed and timeout was successfully executed by the treatment team. The patient was placed in the left lateral position. A digital rectal exam was performed and revealed external hemorrhoids. After appropriate level of anesthesia, the scope was passed. The EC-[id number] ([id number]) endoscope was introduced through the anus and advanced to the cecum, which was identified by transillumination from the light source, the appendix, and the ileocecal valve. The instrument was then slowly withdrawn as the colon was fully examined. Scope withdrawal time was . COLON FINDINGS: Five sessile polyps were found 30cm, 40-45cm, 50cm, 75cm and proximal ascending colon from anal verge . All of them less than 0.5 cm in size except thre ascending proximal colon (1.5cm) and the the one at 40-45cm from anus with is approximately 4 cm in size pedunculated but with large base. Retroflexed views revealed no abnormalities and Retroflexed views revealed medium hemorrhoids. The scope was then completely withdrawn from the patient and the procedure terminated. ADVERSE EVENTS: There were no complications. IMPRESSIONS: 1. Five sessile polyps were found 2. External hemorrhoids 3. Internal hemorrhoids RECOMMENDATIONS: 1. await biopsy results 2. follow-up: office 1 week(s) 3. surgery ( may need formal excision of the large polyp) 4. Pt will be referred to colorectal surgeon. RECALL: for Colonoscopy, pending biopsy results. Edward Scott MD eSigned: Edward Scott MD 04/12/2018 8:38 AM cc: Dr Diaz CPT CODES: ICD9 CODES: PATIENT NAME: Kem Liz MR#: [id number]
== END ==
LOC: OR 06:36
PROVIDERS: ATTEND Surgery
PROC: 0DBN8ZX Excision of Sigmoid Colon, Via Natural or Artificial Opening Endoscopic, Diagnostic (ICD-10-PCS; 2018-04-12)
PROC: 0DBM8ZX Excision of Descending Colon, Via Natural or Artificial Opening Endoscopic, Diagnostic (ICD-10-PCS; 2018-04-12)
PROC: 0DBK8ZX Excision of Ascending Colon, Via Natural or Artificial Opening Endoscopic, Diagnostic (ICD-10-PCS; principal; 2018-04-12 07:30)
DX: D12.2 Benign neoplasm of ascending colon (principal); D12.5 Benign neoplasm of sigmoid colon; K63.5 Polyp of colon; K64.8 Other hemorrhoids; K64.4 Residual hemorrhoidal skin tags; K62.5 Hemorrhage of anus and rectum; I10 Essential (primary) hypertension; F17.210 Nicotine dependence, cigarettes, uncomplicated; Z79.899 Other long term (current) drug therapy
CPT/HCPCS: 88305; J2704

== ENCOUNTER 2018-05-12 05:41 | Emergency (ER) | payer BC ==
--- OUTSIDE RECORDS SUMMARY | 2018-05-12 05:43 | XMS REPORT ---
[...] End Status Dosage System Date Date Metoprolol [facility] 90453855296 25 MG Orally Active 0.5 Tartrate Once a day tablet with food Atorvastatin [facility] 90523698966 40 MG Orally Active 1 tablet Calcium Once a day Lisinopril [facility] 27124702021 5 MG Orally Once Active 1 tablet a day Aspir-81 [facility] 11560623835 81 MG Orally Active 1 tablet Once a day Results No Known Results Summary Purpose eClinicalWorks Submission
--- OUTSIDE RECORDS SUMMARY | 2018-05-12 05:43 | XMS REPORT | Clinical Summary ---
:1980 Author Organization [facility] Address [address] [place] [address] Care Team Providers Name Role Phone Landon Diaz Primary Care Provider Allergies No Known Allergies Medications No known medications Active Problems No known active problems Encounters Date Type Specialty Care Team Description 05/04/2018 Office Visit General Surgery Carlos Kirk Adenomatous polyp of MD Julio descending colon (Primary Dx) after 05/11/2017 Social History Tobacco Use Types Packs/Day Years Used Date Current Every Day Smoker 0.5 Smokeless Tobacco: Never Used Alcohol Use Drinks/Week oz/Week Comments No Alcohol Habits Answer Date Recorded How often do you have a drink containing alcohol? Never 05/04/2018 How many drinks containing alcohol do you have on a typical Not asked day when you are drinking? How often do you have six or more drinks on one occasion? Not asked Sex Assigned at Date Recorded Not on file Job Start Date Occupation Industry Not on file Not on file Not on file Travel History Travel Start Travel End No recent travel history available. 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 For more information, please contact:[place] [address]
--- OUTSIDE RECORDS SUMMARY | 2018-05-12 05:44 | XMS REPORT ---
[...] End Status Dosage System Date Date Lisinopril [facility] 96221732882 5 MG Orally Once Active 1 tablet a day Metoprolol [facility] 55572561401 25 MG Orally Active 0.5 Tartrate Once a day tablet with food Aspir-81 [facility] 03905385351 81 MG Orally Active 1 tablet Once a day Atorvastatin [facility] 28417355588 40 MG Orally Active 1 tablet Calcium Once a day Results No Known Results Summary Purpose eClinicalWorks Submission
--- OUTSIDE RECORDS SUMMARY | 2018-05-12 05:44 | XMS REPORT ---
:1980 Author Organization eClinicalWorks Care Team Providers Name Role Phone Landon Diaz Provider Role Unavailable Allergies, Adverse Reactions, Alerts Substance Reaction Event Type N.K.D.A. Info Not Available Non Drug Allergy Problems Problem Type Condition Code Onset Dates Condition Status Assessment HTN, goal below 140/90 I10 Active Assessment Encounter for preventative adult Z00.01 Active health care exam with abnormal findings Problem GERD without esophagitis K21.9 Active Problem Migraine without aura and without G43.009 Active status migrainosus, not intractable Problem Tobacco use disorder F17.200 Active Problem Adult BMI 36.0-36.9 kg/sq m Z68.36 Active Problem Mixed hyperlipidemia E78.2 Active Problem HTN, goal below 140/90 I10 Active Problem Former heavy tobacco smoker Z87.891 Active Assessment Need for pneumococcal vaccination Z23 Active Assessment Refused influenza vaccine Z28.21 Active Assessment Adult BMI 36.0-36.9 kg/sq m Z68.36 Active Assessment Tobacco use disorder F17.200 Active Assessment GERD without esophagitis K21.9 Active Assessment Polyp of colon, unspecified part of K63.5 Active colon, unspecified type Assessment Mixed hyperlipidemia E78.2 Active Medications Medication Code Code Instructions Start End Status Dosage System Date Date Atorvastatin [facility] 72092866499 40 MG Orally Active 1 tablet Calcium Once a day Lisinopril [facility] 24204950260 5 MG Orally Once Active 1 tablet a day Aspir-[address] [facility] 36869957908 81 MG Orally Active 1 tablet Once a day Metoprolol [facility] 45021489050 25 MG Orally Active 0.5 Tartrate Once a day tablet with food Results No Known Results Immunizations Vaccine Administration Date PNEUMAVAX May 02, 2018 Summary Purpose eClinicalWorks Submission
[2018-05-12] MEDS ORDERED: KETOROLAC 30 MG/ML INJ ONE (06:34)
--- NOTE | 2018-05-12 07:36 | ER ---
Nurse's Notes [facility] Name: Kem Liz Age: 38 yrs Sex: Male : 1980 Arrival Date: 05/12/2018 Time: 05:44 Bed 19 Private MD: Landon Diaz Diagnosis: Other chest pain-Right lateral rib pain Presentation: 05/12 05:54 Presenting complaint: Patient states: that he has had right rib pain x 2 days. [place] it fc pop this am when he coughed. Was here 3-4 weeks ago for pneumonia. Denies any injury. Transition of care: patient was not received from another setting of care. Onset of symptoms was May 10, 2018. Risk Assessment: Do you want to hurt yourself or someone else? Patient reports no desire to harm self or others. Initial Sepsis Screen: Does the patient meet any 2 criteria? HR > 90 bpm. Yes Does the patient have a suspected source of infection? No. Patient's initial sepsis screen is negative. Care prior to arrival: None. 05:54 Method Of Arrival: Ambulatory fc 05:54 Acuity: CHARLEEN 3 fc Historical: - Allergies: 05:57 NKA; fc - Home Meds: 05:57 lisinopril 5 mg oral tab 1 tab once daily [Active]; atorvastatin 40 mg oral tab 1 tab fc nightly [Active]; Metoprolol Tartrate 12.5 mg Oral 1 tab nightly [Active]; - PMHx: 05:57 Hyperlipidemia; Hypertension; fc - PSHx: 05:57 right shoulder surg; fc - Immunization history:: Last tetanus immunization: up to date Flu vaccine is not up to date. - Social history:: Smoking status: Patient uses tobacco products, smokes one-half pack cigarettes per day, Patient/guardian denies using alcohol, street drugs. - Ebola Screening: : Patient negative for fever greater than or equal to 101.5 degrees Fahrenheit, and additional compatible Ebola Virus Disease symptoms Patient denies exposure to infectious person Patient denies travel to an Ebola-affected area in the 21 days before illness onset. Screenin:54 Abuse screen: Denies threats or abuse. Nutritional screening: No deficits noted. jb4 Tuberculosis screening: No symptoms or risk factors identified. Fall Risk None identified. Assessment: 05:54 General: Appears in no apparent distress. uncomfortable, Behavior is calm, cooperative, jb4 appropriate for age. Pain: Complains of pain in right ribs Pain does not radiate. Pain currently is 7 out of 10 on a pain scale. at worst was 10 out of 10 on a pain scale. Quality of pain is described as burning, aching, Pain began 2-3 days ago. Is continuous, Alleviated by rest, Aggravated by repositioning, Coughing, Deep Breathing. Neuro: Level of Consciousness is awake, alert, obeys commands, Oriented to person, place, time, situation. Cardiovascular: Patient's skin is warm and dry. Respiratory: Reports pain with cough pain with movement pain with respiration Airway is patent Respiratory effort is even, unlabored, Respiratory pattern is regular, symmetrical. GI: No signs and/or symptoms were reported involving the gastrointestinal system. : No signs and/or symptoms were reported regarding the genitourinary system. EENT: No signs and/or symptoms were reported regarding the EENT system. Derm: Skin is intact, Skin is pink, warm \T\ dry. Musculoskeletal: Circulation, motion, and sensation intact. 06:52 Reassessment: Patient appears in no apparent distress at this time. Patient and/or jb4 family updated on plan of care and expected duration. Pain level reassessed. Patient is alert, oriented x 3, equal unlabored respirations, skin warm/dry/pink. Patient states feeling better. Vital Signs: 05:57 BP 141 / 83; Pulse 97; Resp 18; Temp 98.8(O); Pulse Ox 97% on R/A; Weight 122.47 kg fc (R); Height 5 ft. 11 in. (180.34 cm) (R); Pain 7/10; 06:52 BP 122 / 85; Pulse 85; Resp 16; Pulse Ox 95% on R/A; Pain 5/10; jb4 05:57 Body Mass Index 37.66 (122.47 kg, 180.34 cm) ED Course: 05:44 Patient arrived in ED. es 05:45 Landon Diaz DO is Private Physician. es 05:48 Josué Musa, VAL is Primary Nurse. jb4 05:54 Patient has correct armband on for positive identification. Bed in low position. Call jb4 light in reach. Side rails up X 1. Pulse ox on. NIBP on. 05:55 Triage completed. 05:57 Arm band placed on Patient placed in an exam room, on a stretcher. fc 06:12 [facility]. cp 06:12 Bigg Morales MD is Attending Physician. cp 06:46 Patient moved to radiology via wheelchair. ml 06:46 X-ray completed. Patient tolerated procedure well. ml 06:47 Chest Pa And Lat (2 Views) XRAY In Process Unspecified. EDMS 07:43 No provider procedures requiring assistance completed. Patient did not have IV access em during this emergency room visit. Administered Medications: 06:25 Drug: TORadol 60 mg Route: IM; Site: right gluteus; jb4 06:51 Follow up: Response: No adverse reaction; Pain is decreased jb4 Outcome: 07:36 Discharge ordered by MD. cp 07:44 Discharged to home ambulatory, with family. em 07:44 Condition: good 07:44 Discharge instructions given to patient, family, Instructed on discharge instructions, follow up and referral plans. medication usage, Demonstrated understanding of instructions, follow-up care, medications, Prescriptions given X 1. 07:44 Patient left the ED. em Signatures: Dispatcher [employer] EDNE Maria R Jiang Felicia RN RN Yimi Vu, CALENDER INSPECTOR CALENDER INSPECTOR em Faith Holguin Beny Pastor PA PA cp Bryson, James, RN RN jb4 Antunez, Elena, RN RN ea Corrections: (The following items were deleted from the chart) 06:53 06:52 Reassessment: Patient appears in no apparent distress at this time. Patient jb4 and/or family updated on plan of care and expected duration. Pain level reassessed. Patient is alert, oriented x 3, equal unlabored respirations, skin warm/dry/pink. jb4 21:13 19:50 Straight cath inserted, using sterile technique, 16 Fr. Specimen obtained. ea ea
--- NOTE | 2018-05-12 07:36 | EDPHYS ---
Physician Documentation [facility] Name: Kem Liz Age: 38 yrs Sex: Male : 1980 Arrival Date: 05/12/2018 Time: 05:44 Bed 19 Private MD: Joe [facility] ED Physician Bigg Morales HPI: 05/12 06:21 This 38 yrs old Male presents to ER via Ambulatory with complaints of RIB cp PAIN. 06:21 The patient or guardian reports chest pain that is located primarily in the right lower cp lateral rib area. Onset: 2 day(s) ago, and became worse this morning, after coughing. The pain does not radiate. Associated signs and symptoms: Pertinent positives: cough, Pertinent negatives: abdominal pain, lower extremity pain, lower extremity swelling, shortness of breath, vomiting, fever. Modifying factors: the symptoms are aggravated by deep breath, palpation of area. 06:21 The patient has been recently seen at the [facility] Emergency cp Department, last month, diagnosed with pneumonia. Reports has continued to have cough. Historical: - Allergies: 05:57 NKA; fc - Home Meds: 05:57 lisinopril 5 mg oral tab 1 tab once daily [Active]; atorvastatin 40 mg oral tab 1 tab fc nightly [Active]; Metoprolol Tartrate 12.5 mg Oral 1 tab nightly [Active]; - PMHx: 05:57 Hyperlipidemia; Hypertension; fc - PSHx: 05:57 right shoulder surg; fc - Immunization history:: Last tetanus immunization: up to date Flu vaccine is not up to date. - Social history:: Smoking status: Patient uses tobacco products, smokes one-half pack cigarettes per day, Patient/guardian denies using alcohol, street drugs. - Ebola Screening: : Patient negative for fever greater than or equal to 101.5 degrees Fahrenheit, and additional compatible Ebola Virus Disease symptoms Patient denies exposure to infectious person Patient denies travel to an Ebola-affected area in the 21 days before illness onset. ROS: 06:25 Constitutional: Negative for body aches, chills, fever, poor PO intake. cp 06:25 Eyes: Negative for injury, pain, redness, and discharge. cp 06:25 ENT: Negative for drainage from ear(s), ear pain, sore throat, difficulty swallowing, difficulty handling secretions. 06:25 Cardiovascular: Positive for chest pain, of the right lower lateral rib area, Negative for edema. 06:25 Respiratory: Positive for cough, Negative for shortness of breath, wheezing. 06:25 Abdomen/GI: Negative for abdominal pain, nausea, vomiting, and diarrhea. 06:25 Back: Negative for pain at rest, pain with movement. 06:25 Skin: Negative for cellulitis, rash. 06:25 All other systems are negative. Exam: 06:35 Constitutional: The patient appears in no acute distress, alert, awake, cp non-diaphoretic, non-toxic, well developed, well nourished. 06:35 Head/Face: Normocephalic, atraumatic. cp 06:35 Eyes: Periorbital structures: appear normal, Conjunctiva: normal, no exudate, no injection, Sclera: no appreciated abnormality, Lids and lashes: appear normal, bilaterally. 06:35 ENT: External ear(s): are unremarkable, Nose: is normal, Mouth: Lips: moist, Oral mucosa: pink and intact, moist, Posterior pharynx: Airway: no evidence of obstruction, patent. 06:35 Neck: ROM/movement: is normal, is supple, without pain, no range of motions limitations. 06:35 Chest/axilla: Inspection: normal, Palpation: crepitus, is not appreciated, tenderness, that is moderate, of the right lower lateral chest wall, that partially reproduces the patient's complaints. 06:35 Cardiovascular: Rate: normal, Rhythm: regular, Edema: is not appreciated, JVD: is not appreciated. 06:35 Respiratory: the patient does not display signs of respiratory distress, Respirations: normal, no use of accessory muscles, no retractions, no splinting, no tachypnea, labored breathing, is not present, Breath sounds: are clear throughout, no decreased breath sounds, no stridor, no wheezing. 06:35 Abdomen/GI: Inspection: abdomen appears normal, Palpation: abdomen is soft and non-tender, in all quadrants. 06:35 Back: pain, is absent, ROM is normal. Vital Signs: 05:57 BP 141 / 83; Pulse 97; Resp 18; Temp 98.8(O); Pulse Ox 97% on R/A; Weight 122.47 kg fc (R); Height 5 ft. 11 in. (180.34 cm) (R); Pain 7/10; 06:52 BP 122 / 85; Pulse 85; Resp 16; Pulse Ox 95% on R/A; Pain 5/10; jb4 05:57 Body Mass Index 37.66 (122.47 kg, 180.34 cm) MDM: 06:12 Patient medically screened. cp 06:30 Differential diagnosis: chest wall pain, cholecystitis, Cholelithiasis costochondritis, cp pneumonia, pneumothorax, pulmonary embolus, rib fracture. 07:35 Data reviewed: vital signs, nurses notes, radiologic studies, plain films, and as a cp result, I will discharge patient. 07:35 Test interpretation: by ED physician or midlevel provider: plain radiologic studies. cp 07:35 Counseling: I had a detailed discussion with the patient and/or guardian regarding: the cp historical points, exam findings, and any diagnostic results supporting the discharge/admit diagnosis, radiology results, to return to the emergency department if symptoms worsen or persist or if there are any questions or concerns that arise at home. 05/12 06:05 Order name: Chest Pa And Lat (2 Views) XRAY Administered Medications: 06:25 Drug: TORadol 60 mg Route: IM; Site: right gluteus; jb4 06:51 Follow up: Response: No adverse reaction; Pain is decreased jb4 Disposition: 05/12/18 07:36 Discharged to Home. Impression: Other chest pain - Right lateral rib pain. - Condition is Stable. - Discharge Instructions: Chest Wall Pain, Musculoskeletal Pain. - Prescriptions for Naprosyn 500 mg Oral Tablet - take 1 tablet by ORAL route 2 times per day As needed take with food; 20 tablet. - Medication Reconciliation Form, Thank You Letter, Antibiotic Education, Prescription Opioid Use form. - Follow up: Private Physician; When: 2 - 3 days; Reason: Recheck today's complaints. - Problem is new. - Symptoms have improved. Addendum: 05/14/2018 19:40 Co-signature as Attending Physician, Bigg Morales MD. g s Signatures: Dispatcher [employer] Michell Maroi RN RN fc Munoz, Edgar, [employer] PROFESSIONAL [employer]ESSION[employer] em Beny Pastor PA PA Josué Anderson RN RN [facility] Bigg Morales MD MD Corrections: (The following items were deleted from the chart) 05/12 06:43 06:28 Constitutional: Negative for body aches, chills, fever, poor PO intake, cp cp :43 06:28 Eyes: Negative for injury, pain, redness, and discharge, cp cp 06:43 06:28 ENT: Negative for drainage from ear(s), ear pain, sore throat, difficulty cp swallowing, difficulty handling secretions, cp :43 06:28 Cardiovascular: Negative for chest pain, palpitations, cp cp :43 06:28 Respiratory: Negative for cough, shortness of breath, wheezing, cp cp 06:43 06:28 Abdomen/GI: Negative for abdominal pain, vomiting, diarrhea, constipation, cp anorexia, black/tarry stool, rectal bleeding, cp :43 06:28 Back: Negative for pain at rest, pain with movement, radiated pain, cp cp 06:43 06:28 : Positive for Negative for urinary symptoms, cp cp :43 06:28 Skin: Negative for rash, cp cp :43 06:28 Neuro: Negative for altered mental status, dizziness, syncope, weakness, cp cp 06:43 06:28 Constitutional: The patient appears in no acute distress, alert, awake, cp non-toxic, well developed, well nourished, cp :43 06:28 Head/Face: Normocephalic, atraumatic. cp cp 06:43 06:28 Eyes: Periorbital structures: appear normal, Conjunctiva: normal, no exudate, no cp injection, Sclera: no appreciated abnormality, Lids and lashes: appear normal, bilaterally, cp :43 06:28 ENT: External ear(s): are unremarkable, Nose: is normal, Mouth: Lips: moist, Oral cp mucosa: pink and intact, moist, Posterior pharynx: Airway: no evidence of obstruction, patent, cp :43 06:28 Chest/axilla: Inspection: normal, Palpation: is normal, no crepitus, no cp tenderness, cp :43 06:28 Cardiovascular: Rate: normal, Rhythm: regular, Edema: is not appreciated, JVD: cp cp :43 06:28 Respiratory: the patient does not display signs of respiratory distress, cp Respirations: normal, no use of accessory muscles, no retractions, no splinting, no tachypnea, labored breathing, is not present, Breath sounds: are clear throughout, no decreased breath sounds, no stridor, no wheezing, cp 06:43 06:28 Abdomen/GI: Inspection: abdomen appears normal, Bowel sounds: active, all cp quadrants, Palpation: soft, in all quadrants, mild abdominal tenderness, in the right lower quadrant and left lower quadrant, rebound tenderness, is not appreciated, voluntary guarding, is not appreciated, involuntary guarding, is not appreciated, cp :43 06:28 Back: pain, is absent, ROM is normal, cp cp :43 06:28 Skin: cellulitis, is not appreciated, no rash present. cp 07:44 07:36 05/12/2018 07:36 Discharged to Home. Impression: Other chest pain - Right lateral em rib pain. Condition is Stable. Forms are Medication Reconciliation Form, Thank You Letter, Antibiotic Education, Prescription Opioid Use. Follow up: Private Physician; When: 2 - 3 days; Reason: Recheck today's complaints. Problem is new. Symptoms have improved. cp
--- NOTE | 2018-05-12 08:27 | RAD REPORT ---
EXAM DESCRIPTION: RAD - Chest Pa And Lat (2 Views) - 05/12/2018 6:47 am CLINICAL HISTORY: Chest pain, cough COMPARISON: May 2017 TECHNIQUE: PA and lateral views of the chest were obtained. FINDINGS: The lungs are clear. Lung markings are similar to comparison. Heart size is normal and ce ntral vasculature is within normal limits. No pleural effusion or pneumothorax seen. No acute bony finding noted. No aortic abnormality. IMPRESSION: No acute cardiopulmonary process. No significant interval change.
== END 2018-05-12 07:44 | disposition home or self-care (01) ==
LOC: ER 05:41
DX: R07.81 Pleurodynia (principal); R05 Cough; E78.5 Hyperlipidemia, unspecified; I10 Essential (primary) hypertension; F17.210 Nicotine dependence, cigarettes, uncomplicated
CPT/HCPCS: 71046; 96372; 99284

== ENCOUNTER 2018-05-25 15:11 | Emergency (ER) | payer BC ==
--- OUTSIDE RECORDS SUMMARY | 2018-05-25 15:13 | XMS REPORT | Clinical Summary ---
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 (Primary Dx) after 05/24/2017 Social History Tobacco Use Types Packs/Day Years [...] Taken Blood Pressure 147/96 05/04/2018 11:[address] Pulse 99 05/04/2018 11:[address] Temperature 37.4 C (99.4 F) 05/04/2018 11:[address] Respiratory Rate - - Oxygen Saturation - - Inhaled Oxygen Concentration - - Weight 122 kg (270 lb) 05/04/2018 11:[address] Height 180.3 cm (5' 11") 05/04/2018 11:[address] Body Mass Index 37.66 05/04/2018 11:[address] Plan of Treatment Health Maintenance Due Date Last Done Comments INFLUENZA VACCINE 09/28/2017 Results Not on fileafter 05/24/2017 Insurance Payer Benefit Plan / Group Subscriber ID Type Phone Address BCBS BCBS CHOICE PPO/[employer]ER[employer] EMPL PPO xxxxxxxxxxxx PPO Advance Directives Patient has advance care planning documents on file. For more information, please contact:[place] [address]
--- OUTSIDE RECORDS SUMMARY | 2018-05-25 15:13 | XMS REPORT ---
[...] End Status Dosage System Date Date Lisinopril [facility] 66029072751 5 MG Orally Once Active 1 tablet a day Metoprolol [facility] 95424763308 25 MG Orally Active 0.5 Tartrate Once a day tablet with food Aspir-81 [facility] 83923165360 81 MG Orally Active 1 tablet Once a day Atorvastatin [facility] 61170048195 40 MG Orally Active 1 tablet Calcium Once a day Results No Known Results Summary Purpose eClinicalWorks Submission
--- OUTSIDE RECORDS SUMMARY | 2018-05-25 15:13 | XMS REPORT ---
[...] End Status Dosage System Date Date Metoprolol [facility] 07594110438 25 MG Orally Active 0.5 Tartrate Once a day tablet with food Atorvastatin [facility] 35017227049 40 MG Orally Active 1 tablet Calcium Once a day Lisinopril [facility] 55254595612 5 MG Orally Once Active 1 tablet a day Aspir-[address] [facility] 65792984070 81 MG Orally Active 1 tablet Once a day Results No Known Results Summary Purpose eClinicalWorks Submission
--- OUTSIDE RECORDS SUMMARY | 2018-05-25 15:14 | XMS REPORT ---
[...] End Status Dosage System Date Date Atorvastatin [facility] 15117624880 40 MG Orally Active 1 tablet Calcium Once a day Lisinopril [facility] 76797575056 5 MG Orally Once Active 1 tablet a day Aspir-81 [facility] 32064978078 81 MG Orally Active 1 tablet Once a day Metoprolol [facility] 96859593664 25 MG Orally Active 0.5 Tartrate Once a day tablet with food Results No Known Results Immunizations Vaccine Administration Date PNEUMAVAX May 02, 2018 Summary Purpose eClinicalWorks Submission
--- NOTE | 2018-05-25 15:49 | RAD REPORT ---
EXAM DESCRIPTION: RAD - Knee Left 3 View - 05/25/2018 3:43 pm CLINICAL HISTORY: Knee pain COMPARISON: None. FINDINGS: No fracture, dislocation or periosteal reaction.Small joint effusion present. No joint spa ce narrowing. No soft tissue abnormality. IMPRESSION: Small left knee joint effusion with no acute bone finding. Clinical concerns for internal derangement or occult bony injury could be further assessed with MR im aging.
--- NOTE | 2018-05-25 16:24 | EDPHYS ---
Physician Documentation [facility] Name: Kem Liz Age: 38 yrs Sex: Male : 1980 Arrival Date: 05/25/2018 Time: 15:14 Bed 30 Private MD: Joe [facility] ED Physician Donaldo Acuña HPI: 05/25 16:08 This 38 yrs old Male presents to ER via Ambulatory with complaints of Knee jr8 Pain. 16:08 The patient presents with pain, swelling, tenderness. The complaints affect the left jr8 knee. Context: The problem was sustained at home, resulted from bending down. Onset: The symptoms/episode began/occurred acutely, yesterday. Modifying factors: The symptoms are alleviated by nothing. the symptoms are aggravated by movement, weight bearing, bending knee. Associated signs and symptoms: The patient has no apparent associated signs or symptoms. The patient has not experienced similar symptoms in the past. The patient has not recently seen a physician. Patient stated that he was bending down and knee just gave out. No pop to knee or direct trauma. Now has swelling and pain to knee. Can bear weight but with pain. Historical: - Allergies: 15:22 NKA; hb - Home Meds: 15:22 atorvastatin 40 mg Oral tab 1 tab nightly [Active]; lisinopril 5 mg Oral tab 1 tab once hb daily [Active]; Metoprolol Tartrate 12.5 MG Oral 1 tab nightly [Active]; - PMHx: 15:22 Hyperlipidemia; Hypertension; hb - PSHx: 15:22 right shoulder surg; hb - Immunization history:: Adult Immunizations up to date. - Social history:: Smoking status: Patient/guardian denies using tobacco. - Ebola Screening: : No symptoms or risks identified at this time. ROS: 16:08 Eyes: Negative for injury, pain, redness, and discharge, ENT: Negative for injury, jr8 pain, and discharge, Neck: Negative for injury, pain, and swelling, Cardiovascular: Negative for chest pain, palpitations, and edema, Respiratory: Negative for shortness of breath, cough, wheezing, and pleuritic chest pain, Abdomen/GI: Negative for abdominal pain, nausea, vomiting, diarrhea, and constipation, Back: Negative for injury and pain, Skin: Negative for injury, rash, and discoloration, Neuro: Negative for headache, weakness, numbness, tingling, and seizure. 16:08 MS/extremity: Positive for pain, swelling, tenderness, of the left knee. Exam: 16:08 Eyes: Pupils equal round and reactive to light, extra-ocular motions intact. Lids and jr8 lashes normal. Conjunctiva and sclera are non-icteric and not injected. Cornea within normal limits. Periorbital areas with no swelling, redness, or edema. ENT: Nares patent. No nasal discharge, no septal abnormalities noted. Tympanic membranes are normal and external auditory canals are clear. Oropharynx with no redness, swelling, or masses, exudates, or evidence of obstruction, uvula midline. Mucous membranes moist. Neck: Trachea midline, no thyromegaly or masses palpated, and no cervical lymphadenopathy. Supple, full range of motion without nuchal rigidity, or vertebral point tenderness. No Meningismus. Cardiovascular: Regular rate and rhythm with a normal S1 and S2. No gallops, murmurs, or rubs. Normal PMI, no JVD. No pulse deficits. Respiratory: Lungs have equal breath sounds bilaterally, clear to auscultation and percussion. No rales, rhonchi or wheezes noted. No increased work of breathing, no retractions or nasal flaring. Abdomen/GI: Soft, non-tender, with normal bowel sounds. No distension or tympany. No guarding or rebound. No evidence of tenderness throughout. Back: No spinal tenderness. No costovertebral tenderness. Full range of motion. Skin: Warm, dry with normal turgor. Normal color with no rashes, no lesions, and no evidence of cellulitis. Neuro: Awake and alert, GCS 15, oriented to person, place, time, and situation. Cranial nerves II-XII grossly intact. Motor strength 5/5 in all extremities. Sensory grossly intact. Cerebellar exam normal. Normal gait. 16:08 Musculoskeletal/extremity: Extremities: grossly normal except: noted in the left knee: pain, swelling, tenderness, ROM: intact in all extremities, full active range of motion, full passive range of motion, limited active range of motion due to pain, limited passive range of motion due to pain, Circulation is intact in all extremities. Sensation intact. Negative varus, valgus testing. Negative anterior drawer or posterior drawer . Vital Signs: 15:20 BP 158 / 94; Pulse 75; Resp 16; Temp 98.4; Pulse Ox 100% on R/A; Pain 7/10; hb 15:30 BP 144 / 100 RA; Pulse 89; Resp 18 S; Pulse Ox 96% on R/A; rv Procedures: 16:18 Splinting: Splint applied to left knee using lee wrap, applied by tech. Examined by me, jr8 post splint application: neurovascular intact, 2+ distal pulses palpable, brisk capillary refill noted, Patient tolerated well. Crutch training provided to patient and/or family. Return demonstration given. MDM: 15:21 Patient medically screened. jr8 16:18 Data reviewed: vital signs, nurses notes, radiologic studies, plain films, and as a jr8 result, I will discharge patient. Data interpreted: Pulse oximetry: on room air is 96 %. Interpretation: normal. Counseling: I had a detailed discussion with the patient and/or guardian regarding: the historical points, exam findings, and any diagnostic results supporting the discharge/admit diagnosis, radiology results, the need for outpatient follow up, a orthopedic surgeon, to return to the emergency department if symptoms worsen or persist or if there are any questions or concerns that arise at home. 05/25 15:23 Order name: XRAY Knee LEFT 3 view; Complete Time: 16:08 jr8 05/25 16:23 Order name: Lee wrap-joint; Complete Time: 16:36 jr8 05/25 16:23 Order name: Crutches; Complete Time: 16:36 jr8 Administered Medications: No medications were administered Disposition: 17:44 Co-signature as Attending Physician, Donaldo Acuña MD I agree with the assessment and kdr plan of care. Disposition: 05/25/18 16:23 Discharged to Home. Impression: Sprain of other specified parts of left knee. - Condition is Stable. - Discharge Instructions: Knee Sprain. - Prescriptions for Mobic 15 mg Oral tablet - take 1 tablet by ORAL route once daily As needed; 20 tablet. - Work release form, Medication Reconciliation Form, Thank You Letter, Antibiotic Education, Prescription Opioid Use form. - Follow up: Asa English MD; When: 5 - 6 days; Reason: Recheck today's complaints, Continuance of care, Re-evaluation by your physician. - Problem is new. - Symptoms have improved. Signatures: Dispatcher [employer] EDMS Donaldo Acuña MD MD kdr Roszak, Josh, PA PA jr8 Jesica Mae, VAL RN Mark Underwood RN RN rv Corrections: (The following items were deleted from the chart) 16:37 16:23 05/25/2018 16:23 Discharged to Home. Impression: Sprain of other specified parts rv of left knee. Condition is Stable. Forms are Medication Reconciliation Form, Thank You Letter, Antibiotic Education, Prescription Opioid Use. Follow up: Asa English; When: 5 - 6 days; Reason: Recheck today's complaints, Continuance of care, Re-evaluation by your physician. Problem is new. Symptoms have improved. jr8
--- NOTE | 2018-05-25 16:24 | ER ---
Nurse's Notes [facility] Name: Kem Liz Age: 38 yrs Sex: Male : 1980 Arrival Date: 05/25/2018 Time: 15:14 Bed 30 Private MD: Landon Diaz Diagnosis: Sprain of other specified parts of left knee Presentation: 05/25 15:21 Presenting complaint: Patient states: Left knee pain x 2 days. Pt reports he was hb bending down and his knee gave out yesterday. Transition of care: patient was not received from another setting of care. Onset of symptoms was May 24, 2018. Risk Assessment: Do you want to hurt yourself or someone else? Patient reports no desire to harm self or others. Care prior to arrival: None. 15:21 Method Of Arrival: Ambulatory hb 15:21 Acuity: CHARLEEN 4 hb 15:23 Initial Sepsis Screen: Does the patient meet any 2 criteria? No. Patient's initial rv sepsis screen is negative. Does the patient have a suspected source of infection? No. Patient's initial sepsis screen is negative. Historical: - Allergies: 15:22 NKA; hb - Home Meds: 15:22 atorvastatin 40 mg Oral tab 1 tab nightly [Active]; lisinopril 5 mg Oral tab 1 tab once hb daily [Active]; Metoprolol Tartrate 12.5 MG Oral 1 tab nightly [Active]; - PMHx: 15:22 Hyperlipidemia; Hypertension; hb - PSHx: 15:22 right shoulder surg; hb - Immunization history:: Adult Immunizations up to date. - Social history:: Smoking status: Patient/guardian denies using tobacco. - Ebola Screening: : No symptoms or risks identified at this time. Screenin:22 Abuse screen: Denies threats or abuse. Denies injuries from another. Nutritional rv screening: No deficits noted. Tuberculosis screening: No symptoms or risk factors identified. Fall Risk None identified. Assessment: 15:20 General: Appears in no apparent distress. comfortable, Behavior is calm, cooperative. rv Pain: Complains of pain in left quadriceps and left knee. Neuro: Level of Consciousness is awake, alert, obeys commands, Oriented to person, place, time, situation. Cardiovascular: Capillary refill < 3 seconds. Respiratory: Airway is patent. GI: No signs and/or symptoms were reported involving the gastrointestinal system. : No signs and/or symptoms were reported regarding the genitourinary system. EENT: No signs and/or symptoms were reported regarding the EENT system. Derm: Skin is intact. Musculoskeletal: Swelling present in left quadriceps and left knee. Vital Signs: 15:20 BP 158 / 94; Pulse 75; Resp 16; Temp 98.4; Pulse Ox 100% on R/A; Pain 7/10; hb 15:30 BP 144 / 100 RA; Pulse 89; Resp 18 S; Pulse Ox 96% on R/A; rv ED Course: 15:14 Patient arrived in ED. as 15:15 Landon Diaz DO is Private Physician. as 15:21 [facility]. jr8 15:21 Donaldo Acuña MD is Attending Physician. jr8 15:22 Triage completed. hb 15:22 Arm band placed on. hb 15:23 Patient has correct armband on for positive identification. Bed in low position. Call rv light in reach. Side rails up X 1. Pulse ox on. NIBP on. 15:44 XRAY Knee LEFT 3 view In Process Unspecified. EDMS 16:23 Asa English MD is Referral Physician. jr8 16:36 No provider procedures requiring assistance completed. Patient did not have IV access rv during this emergency room visit. Administered Medications: No medications were administered Outcome: 16:23 Discharge ordered by . jr8 16:36 Discharged to home with crutches. rv 16:36 Condition: good 16:36 Discharge instructions given to patient, Instructed on discharge instructions, follow up and referral plans. medication usage, Demonstrated understanding of instructions, follow-up care, medications, Prescriptions given X 1. 16:37 Patient left the ED. rv Signatures: Dispatcher [employer] EDMS Sydnee Scott as Carlos Fuentes PA PA jr8 Jesica Mae, VAL RN Mark Undewrood RN RN rv
== END 2018-05-25 16:37 | disposition home or self-care (01) ==
LOC: ER 15:11
DX: S83.92XA Sprain of unspecified site of left knee, initial encounter (principal); X50.1XXA Overexertion from prolonged static or awkward postures, initial encounter; E78.5 Hyperlipidemia, unspecified; I10 Essential (primary) hypertension
CPT/HCPCS: 99283

== ENCOUNTER 2018-11-27 19:52 | Emergency (ER) | payer BC ==
[2018-11-27 21:41] LABS: Absolute Lymphocytes (CBC) 3.1 K/uL (0.7-4.9); Basophils % 0.6 % (0-1.3); Hematocrit 46.3 % (39.6-49.0); Lymphocytes % 37.6 % (15.3-44.8); MPV 11.2 fL (7.6-11.3); RBC Red Blood Cell Count 5.04 M/uL (4.33-5.43)
[2018-11-27 21:47] LABS: Protime INR 0.9
[2018-11-27] MEDS ORDERED: KETOROLAC 30 MG/ML INJ ONE (21:52)
[2018-11-27] MEDS ORDERED: ONDANSETRON 4 MG/2 ML VIAL ONE (21:52)
[2018-11-27] MEDS ORDERED: NA CHLORIDE 0.9% 1,000 ML ONE (21:52)
[2018-11-27 21:56] LABS: ALT/SGPT 27 U/L (12-78); AST/SGOT 12 U/L (15-37); Albumin 3.7 g/dL (3.4-5.0); Alkaline Phosphatase 104 U/L (45-117); BUN Blood Urea Nitrogen 17 mg/dL (7-18); Bicarbonate 28 mmol/L (21-32); Bilirubin Direct < 0.1 mg/dL (0-0.2); Bilirubin Total 0.2 mg/dL (0.2-1.0); Glucose Level 98 mg/dL (74-106); Magnesium 1.9 mg/dL (1.8-2.4); NT PRO-BNP 22 pg/mL (<125); Potassium 3.8 mmol/L (3.5-5.1); Protein, Total 7.7 g/dL (6.4-8.2); Sodium Level 141 mmol/L (136-145); Troponin (Emerg Dept Use Only) < 0.02 ng/mL (0.0-0.045)
--- NOTE | 2018-11-27 22:07 | RAD REPORT ---
EXAM DESCRIPTION: CT - Head Brain Wo Cont - 11/27/2018 9:48 pm CLINICAL HISTORY: Headache, syncope COMPARISON: None. TECHNIQUE: Axial 5 mm thick images of the head were obtained without IV contrast. All CT scans are performed using dose optimization technique as appropriate and may include automated exposure control or mA/KV adjustment according to patient size. FINDINGS: No intracranial hemorrhage, mass, edema or shift of mid-line structures. No acute infarcti on changes seen. No abnormal extra-axial fluid collections. Ventricles are normal. Mastoid air cells and visualized portions of the paranasal sinuses are clear. No acute bony findings. IMPRESSION: Negative non-contrast CT head examination.
--- NOTE | 2018-11-27 22:49 | ER ---
Nurse's Notes [facility] Name: Kem Liz Age: 38 yrs Sex: Male : 1980 Arrival Date: 11/27/2018 Time: 19:56 Bed 2 Private MD: Diagnosis: Headache;Syncope and collapse Presentation: 11/27 20:12 Presenting complaint: Patient states: "I've been having bad migraines and I've been aj1 having fainting spells with them" Reports that he has been having migraines for the past 2 weeks, reports that he has had syncopal episodes with his migraines in the past but it has been a while. States that he usually passes out if the pain is really bad. Denies any recent head injury, denies vomiting. Transition of care: patient was not received from another setting of care. Onset of symptoms was November 27, 2018. Risk Assessment: Do you want to hurt yourself or someone else? Patient reports no desire to harm self or others. Initial Sepsis Screen: Does the patient meet any 2 criteria? No. Patient's initial sepsis screen is negative. Does the patient have a suspected source of infection? No. Patient's initial sepsis screen is negative. Care prior to arrival: None. 20:12 Method Of Arrival: Ambulatory aj1 20:12 Acuity: CHARLEEN 3 aj1 Triage Assessment: 20:14 General: Appears in no apparent distress. comfortable, Behavior is calm, cooperative, aj1 appropriate for age. Pain: Complains of pain in occipital area, left temporal area and right temporal area Pain currently is 6 out of 10 on a pain scale. Neuro: Level of Consciousness is awake, alert, obeys commands, Oriented to person, place, time, situation, Gait is steady, Speech is normal, Facial symmetry appears normal. Historical: - Allergies: 20:14 NKA; aj1 - Home Meds: 20:14 lisinopril 5 mg Oral tab 1 tab once daily [Active]; Metoprolol Tartrate 12.5 MG Oral 1 aj1 tab nightly [Active]; atorvastatin 40 mg Oral tab 1 tab nightly [Active]; Chantix oral oral [Active]; - PMHx: 20:14 Hyperlipidemia; Hypertension; aj1 - Immunization history:: Flu vaccine is up to date. - Social history:: Smoking status: Patient uses tobacco products, 1 cigarette per day. - Ebola Screening: : Patient denies travel to an Ebola-affected area in the 21 days before illness onset. - Family history:: not pertinent. Screenin:03 Abuse screen: Denies threats or abuse. Denies injuries from another. Nutritional lp1 screening: No deficits noted. Tuberculosis screening: No symptoms or risk factors identified. Fall Risk None identified. Assessment: 21:07 General: Appears in no apparent distress. Behavior is appropriate for age. Pain: lp1 Complains of pain in head Pain currently is 6 out of 10 on a pain scale. Neuro: Level of Consciousness is awake, alert, obeys commands, Oriented to person, place, time, situation, Gait is steady, Speech is normal, Pupils are PERRLA, Reports headache occipital area, since 2 weeks a syncopal episode. Cardiovascular: Patient's skin is warm and dry. Respiratory: Respiratory effort is even, unlabored. GI: Abdomen is non-distended. : No signs and/or symptoms were reported regarding the genitourinary system. EENT: No signs and/or symptoms were reported regarding the EENT system. Derm: Skin is pink, warm \\T\\ dry. Musculoskeletal: No deficits noted. 22:35 Reassessment: Patient is alert, oriented x 3, equal unlabored respirations, skin lp1 warm/dry/pink. Patient states headache improving Patient states feeling better. 23:20 Reassessment: Patient appears in no apparent distress at this time. Patient is alert, lp1 oriented x 3, equal unlabored respirations, skin warm/dry/pink. Patient states feeling better. Patient states symptoms have improved. Neuro: Gait is steady. Vital Signs: 20:14 BP 154 / 99; Pulse 86; Resp 18; Temp 98.3; Pulse Ox 100% on R/A; Weight 117.93 kg (R); aj1 Height 5 ft. 10 in. (177.80 cm) (R); 21:00 BP 146 / 108; Pulse 86; Resp 16; Pulse Ox 99% on R/A; Pain 6/10; lp1 22:35 BP 129 / 96; Pulse 84; Resp 18; Pulse Ox 99% on R/A; lp1 20:14 Body Mass Index 37.31 (117.93 kg, 177.80 cm) aj1 ED Course: 19:56 Patient arrived in ED. ds1 20:14 Triage completed. aj1 20:14 Arm band placed on Patient placed in waiting room, Patient notified of wait time. aj1 21:01 Nissa Wells, VAL is Primary Nurse. lp1 21:01 Inserted saline lock: 20 gauge in left antecubital area, using aseptic technique. Blood lp1 collected. By DYLAN Mi. 21:03 Patient has correct armband on for positive identification. Placed in gown. Cardiac lp1 monitor on. Pulse ox on. NIBP on. 21:30 Beny Zepeda MD is Attending Physician. doris 21:46 XRAY Chest (1 view) In Process Unspecified. EDMS 21:49 CT Head Brain wo Cont In Process Unspecified. EDMS 22:18 US Carotid Artery Bilateral In Process Unspecified. EDMS 22:18 Ultrasound completed. Patient taken to an exam room, via wheelchair. hr 22:35 No provider procedures requiring assistance completed. lp1 22:49 Denver Simpson MD is Referral Physician. doris 22:49 Messi Patel MD is Referral Physician. doris 23:20 IV discontinued, No redness/swelling at site. Pressure dressing applied. lp1 Administered Medications: 22:24 Drug: NS 0.9% 1000 ml Route: IV; Rate: 1 bolus; Site: left antecubital; lp1 23:19 Follow up: IV Status: Completed infusion; IV Intake: 1000ml lp1 22:24 Drug: TORadol 30 mg Route: IVP; Site: left antecubital; lp1 23:19 Follow up: Response: Pain is decreased lp1 22:24 Not Given (Patient Refused): Zofran 4 mg IVP once; over 2 minutes lp1 Intake: 23:19 IV: 1000ml; Total: 1000ml. lp1 Outcome: 22:49 Discharge ordered by . doris 23:20 Discharged to home ambulatory, with significant other. lp1 23:20 Condition: good 23:20 Discharge instructions given to patient, significant other, Instructed on discharge instructions, follow up and referral plans. medication usage, Demonstrated understanding of instructions, follow-up care, medications, Prescriptions given X 2. 23:20 Patient left the ED. lp1 Signatures: Dispatcher [employer] Elsi Combs RN RN aj1 Duane, MD MD doris Swan Haley hr [place], Demi ds1 Nissa Wells, RN RN lp1
--- NOTE | 2018-11-27 22:49 | EDPHYS ---
Physician Documentation [facility] Name: Kem Liz Age: 38 yrs Sex: Male : 1980 Arrival Date: 11/27/2018 Time: 19:56 Bed 2 Private MD: ED Physician Beny Zepeda HPI: 11/27 21:36 This 38 yrs old Male presents to ER via Ambulatory with complaints of doris Migraine, Passed Out Prior To Arrival. 21:36 The patient has experienced syncope, collapsed. Onset: The symptoms/episode doris began/occurred today. Duration: The patient has had multiple episodes, that last 20 second(s). Context: the episode(s) was witnessed, by a friend. Associated injury: The patient did not suffer any apparent associated injury. Associated signs and symptoms: The patient has no apparent associated signs or symptoms. Current symptoms: Currently, the patient is not experiencing any symptoms. The patient has experienced similar episodes in the past, multiple times. Historical: - Allergies: 20:14 NKA; aj1 - Home Meds: 20:14 lisinopril 5 mg Oral tab 1 tab once daily [Active]; Metoprolol Tartrate 12.5 MG Oral 1 aj1 tab nightly [Active]; atorvastatin 40 mg Oral tab 1 tab nightly [Active]; Chantix oral oral [Active]; - PMHx: 20:14 Hyperlipidemia; Hypertension; aj1 - Immunization history:: Flu vaccine is up to date. - Social history:: Smoking status: Patient uses tobacco products, 1 cigarette per day. - Ebola Screening: : Patient denies travel to an Ebola-affected area in the 21 days before illness onset. - Family history:: not pertinent. ROS: 21:36 Constitutional: Negative for fever, chills, and weight loss, Eyes: Negative for injury, doris pain, redness, and discharge, ENT: Negative for injury, pain, and discharge, Neck: Negative for injury, pain, and swelling, Cardiovascular: Negative for chest pain, palpitations, and edema, Respiratory: Negative for shortness of breath, cough, wheezing, and pleuritic chest pain, Abdomen/GI: Negative for abdominal pain, nausea, vomiting, diarrhea, and constipation, Back: Negative for injury and pain, : Negative for injury, bleeding, discharge, and swelling, MS/Extremity: Negative for injury and deformity, Skin: Negative for injury, rash, and discoloration, Psych: Negative for depression, anxiety, suicide ideation, homicidal ideation, and hallucinations, Allergy/Immunology: Negative for hives, rash, and allergies, Endocrine: Negative for neck swelling, polydipsia, polyuria, polyphagia, and marked weight changes, Hematologic/Lymphatic: Negative for swollen nodes, abnormal bleeding, and unusual bruising. 21:36 Neuro: Positive for headache. Exam: 21:36 Constitutional: This is a well developed, well nourished patient who is awake, alert, doris and in no acute distress. Head/Face: Normocephalic, atraumatic. Eyes: Pupils equal round and reactive to light, extra-ocular motions intact. Lids and lashes normal. Conjunctiva and sclera are non-icteric and not injected. Cornea within normal limits. Periorbital areas with no swelling, redness, or edema. ENT: Nares patent. No nasal discharge, no septal abnormalities noted. Tympanic membranes are normal and external auditory canals are clear. Oropharynx with no redness, swelling, or masses, exudates, or evidence of obstruction, uvula midline. Mucous membranes moist. Neck: Trachea midline, no thyromegaly or masses palpated, and no cervical lymphadenopathy. Supple, full range of motion without nuchal rigidity, or vertebral point tenderness. No Meningismus. Chest/axilla: Normal chest wall appearance and motion. Nontender with no deformity. No lesions are appreciated. Cardiovascular: Regular rate and rhythm with a normal S1 and S2. No gallops, murmurs, or rubs. Normal PMI, no JVD. No pulse deficits. Respiratory: Lungs have equal breath sounds bilaterally, clear to auscultation and percussion. No rales, rhonchi or wheezes noted. No increased work of breathing, no retractions or nasal flaring. Abdomen/GI: Soft, non-tender, with normal bowel sounds. No distension or tympany. No guarding or rebound. No evidence of tenderness throughout. Back: No spinal tenderness. No costovertebral tenderness. Full range of motion. Male : Normal genitalia with no discharge or lesions. Skin: Warm, dry with normal turgor. Normal color with no rashes, no lesions, and no evidence of cellulitis. MS/ Extremity: Pulses equal, no cyanosis. Neurovascular intact. Full, normal range of motion. Neuro: Awake and alert, GCS 15, oriented to person, place, time, and situation. Cranial nerves II-XII grossly intact. Motor strength 5/5 in all extremities. Sensory grossly intact. Cerebellar exam normal. Normal gait. Psych: Awake, alert, with orientation to person, place and time. Behavior, mood, and affect are within normal limits. Vital Signs: 20:14 BP 154 / 99; Pulse 86; Resp 18; Temp 98.3; Pulse Ox 100% on R/A; Weight 117.93 kg (R); aj1 Height 5 ft. 10 in. (177.80 cm) (R); 21:00 BP 146 / 108; Pulse 86; Resp 16; Pulse Ox 99% on R/A; Pain 6/10; lp1 22:35 BP 129 / 96; Pulse 84; Resp 18; Pulse Ox 99% on R/A; lp1 20:14 Body Mass Index 37.31 (117.93 kg, 177.80 cm) [facility] MDM: 21:30 Patient medically screened. [facility] 21:37 Data reviewed: vital signs, nurses notes, lab test result(s), EKG, radiologic studies, [facility] CT scan, plain films. 11/27 21:23 Order name: Basic Metabolic Panel; Complete Time: 22:47 [facility] 11/27 21:23 Order name: CBC with Diff [facility] 11/27 21:23 Order name: LFT's; Complete Time: 22:47 [facility] 11/27 21:23 Order name: Magnesium; Complete Time: 22:47 [facility] 11/27 21:23 Order name: NT PRO-BNP; Complete Time: 22:47 [facility] 11/27 21:23 Order name: PT-INR; Complete Time: 22:47 [facility] 11/27 21:23 Order name: Troponin (emerg Dept Use Only); Complete Time: 22:47 [facility] 11/27 21:23 Order name: XRAY Chest (1 view) [facility] 11/27 21:35 Order name: CT Head Brain wo Cont; Complete Time: 22:47 [facility] 11/27 21:35 Order name: US Carotid Artery Bilateral [facility] 11/27 21:54 Order name: CBC Smear Scan EDMS 11/27 21:23 Order name: EKG; Complete Time: 21:25 [facility] 11/27 21:24 Order name: Cardiac monitoring; Complete Time: 21:24 lp1 11/27 21:24 Order name: EKG - Nurse/Tech; Complete Time: 21:24 lp1 11/27 21:24 Order name: IV Saline Lock; Complete Time: 21:24 lp1 11/27 21:24 Order name: Labs collected and sent; Complete Time: 21:24 lp1 11/27 21:24 Order name: O2 Per Protocol; Complete Time: 21:24 lp1 11/27 21:24 Order name: O2 Sat Monitoring; Complete Time: 21:24 lp1 Administered Medications: 22:24 Drug: NS 0.9% 1000 ml Route: IV; Rate: 1 bolus; Site: left antecubital; lp1 23:19 Follow up: IV Status: Completed infusion; IV Intake: 1000ml lp1 22:24 Drug: TORadol 30 mg Route: IVP; Site: left antecubital; lp1 23:19 Follow up: Response: Pain is decreased lp1 22:24 Not Given (Patient Refused): Zofran 4 mg IVP once; over 2 minutes lp1 Disposition: 11/27/18 22:49 Discharged to Home. Impression: Headache, Syncope and collapse. - Condition is Stable. - Discharge Instructions: General Headache Without Cause, Hypertension, Near-Syncope, Weakness, Near-Syncope, Vlbg-kb-Ismx, Hypertension, Suou-fi-Fznw, Syncope, Oibf-rj-Tffn, Weakness, Sivx-gi-Jtih, General Headache Without Cause, Ydtc-pz-Omby. - Prescriptions for Fioricet with Codeine 50- 325-40-30 mg Oral capsule - take 1 capsule by ORAL route every 4 hours as needed not to exceed 6 capsules per 24hrs; 24 capsule. Zofran 4 mg Oral Tablet - take 1 tablet by ORAL route every 12 hours As needed; 20 tablet. - Medication Reconciliation Form, Thank You Letter, Antibiotic Education, Prescription Opioid Use, Work release form form. - Follow up: Private Physician; When: 2 - 3 days; Reason: Recheck today's complaints, Continuance of care, Re-evaluation by your physician. Follow up: Denver Simpson; When: 1 - 2 days; Reason: Recheck today's complaints, Continuance of care, Re-evaluation by your physician. Follow up: Messi Patel MD; When: 2 - 3 days; Reason: Recheck today's complaints, Re-evaluation by your physician. - Problem is new. - Symptoms have improved. Signatures: Dispatcher [employer] Elsi Wong RN RN aj1 Beny Zepeda MD MD cha Pena, Laura, RN RN lp1 Corrections: (The following items were deleted from the chart) 22:49 22:49 11/27/2018 22:49 Discharged to Home. Impression: Headache; Syncope and collapse. doris Condition is Stable. Discharge Instructions: General Headache Without Cause, Near-Syncope, Weakness, Near-Syncope, Keal-la-Qhbt, Syncope, Zmeg-vb-Ttnk, Weakness, Dmfk-mu-Ekja, General Headache Without Cause, Lmjm-ce-Mksx, Hypertension, Hypertension, Jlro-cs-Cqsg. Prescriptions for Fioricet with Codeine 94-112-23-30 mg Oral capsule - take 1 capsule by ORAL route every 4 hours as needed not to exceed 6 capsules per 24hrs; 24 capsule, Zofran 4 mg Oral Tablet - take 1 tablet by ORAL route every 12 hours As needed; 20 tablet. and Forms are Medication Reconciliation Form, Thank You Letter, Antibiotic Education, Prescription Opioid Use. Follow up: Private Physician; When: 2 - 3 days; Reason: Recheck today's complaints, Continuance of care, Re-evaluation by your physician. Follow up: Denver Simpson; When: 1 - 2 days; Reason: Recheck today's complaints, Continuance of care, Re-evaluation by your physician. Problem is new. Symptoms have improved. doris 23:20 22:49 11/27/2018 22:49 Discharged to Home. Impression: Headache; Syncope and collapse. lp1 Condition is Stable. Discharge Instructions: General Headache Without Cause, Near-Syncope, Weakness, Near-Syncope, Qfoq-xp-Nzre, Syncope, Gxgu-ye-Uryp, Weakness, Wlfi-bl-Fmjm, General Headache Without Cause, Texm-dj-Lirh, Hypertension, Hypertension, Agdq-dg-Emmy. Prescriptions for Fioricet with Codeine 32-935-41-30 mg Oral capsule - take 1 capsule by ORAL route every 4 hours as needed not to exceed 6 capsules per 24hrs; 24 capsule, Zofran 4 mg Oral Tablet - take 1 tablet by ORAL route every 12 hours As needed; 20 tablet. and Forms are Medication Reconciliation Form, Thank You Letter, Antibiotic Education, Prescription Opioid Use. Follow up: Private Physician; When: 2 - 3 days; Reason: Recheck today's complaints, Continuance of care, Re-evaluation by your physician. Follow up: Denver Simpson; When: 1 - 2 days; Reason: Recheck today's complaints, Continuance of care, Re-evaluation by your physician. Follow up: Messi Patel; When: 2 - 3 days; Reason: Recheck today's complaints, Re-evaluation by your physician. Problem is new. Symptoms have improved. doris
[2018-11-27 23:28] LABS: Blood Morphology Comment NOT SEEN (NOT SEEN); Platelet Estimate ADEQ; Urine White Blood Cell Casts OK
[2018-11-28 00:41] VITALS: TEMP 98.3
[2018-11-28 00:43] VITALS: O2SAT 99
[2018-11-28 00:44] VITALS: BP 129/96
--- NOTE | 2018-11-28 06:50 | RAD REPORT ---
EXAM DESCRIPTION: RAD - Chest Single View - 11/27/2018 9:45 pm CLINICAL HISTORY: Shortness of breath COMPARISON: April 2018 TECHNIQUE: AP portable chest image was obtained 2130 hours . FINDINGS: Lung volumes are low accentuating lung markings. No mass, consolidation or significant laurel lure suspected. Heart and vasculature are normal. No measurable pleural effusion and no pneumothorax. No acute bony abnormality seen. No acute aortic findings suspected. IMPRESSION: No acute cardiopulmonary process.
--- NOTE | 2018-11-28 08:42 | RAD REPORT ---
EXAM DESCRIPTION: US - CP - 11/27/2018 10:16 pm CLINICAL HISTORY: Syncope COMPARISON: None. TECHNIQUE: Real-time sonographic evaluation of both carotid systems was performed. De Souza scale and Do ppler interrogation were performed with waveform tracing bilaterally. FINDINGS: Normal high resistance waveforms are noted in both external carotid arteries. The common c arotid arteries and internal carotid arteries show normal low resistance waveforms. No significant plaque formation is seen. Peak systolic and end diastolic velocity values and the ICA/ CCA ratios are in the non-hemodynamically significant range. Antegrade flow seen in both vertebral arteries. Velocity values and ratios were recorded and are retained in the patient's imaging records. IMPRESSION: No significant atherosclerotic changes noted. No evidence of a hemodynamically significant stenosis.
--- NOTE | 2018-11-28 11:03 | EKG ---
Test Date: 2018-11-27 Test Time: 20:25:00 Director Non Profit: ANISA MEASUREMENT RESULTS: Intervals: Rate: 86 SD: 148 QRSD: 88 QT: 366 QTc: 437 [place]: P: 47 SD: 148 QRS: 21 T: 36 INTERPRETIVE STATEMENTS: Normal sinus rhythm Possible Left atrial enlargement Borderline ECG Compared to ECG 06/15/2017 09:37:11 Sinus tachycardia no longer present Electronically Signed On 11-28-18 11:02:38 CDT by Ez Salmon
== END 2018-11-27 23:20 | disposition home or self-care (01) ==
LOC: ER 19:52
DX: R51 Headache (principal); I10 Essential (primary) hypertension; E78.5 Hyperlipidemia, unspecified; Z72.0 Tobacco use
CPT/HCPCS: 96361; 93005; 85025; 80048; 36415; 83735; 85610; 80076; 84484; 83880; 70450; 71045; 93880; 96374; 99284; J7030; J2405

== ENCOUNTER 2019-06-03 15:15 | Emergency (ER) | payer BC ==
--- OUTSIDE RECORDS SUMMARY | 2019-06-03 15:17 | XMS REPORT ---
:1980 Author Organization [employer] Care Team Providers Name Role Phone Diaz Landon Provider Role Unavailable Allergies No Known Allergies Problems Problem Type Condition Code Onset Dates Condition Status Assessment Prediabetes R73.03 Active Assessment Mixed hyperlipidemia E78.2 Active Problem GERD without esophagitis K21.9 Active Problem Migraine without aura and without G43.009 Active status migrainosus, not intractable Problem Tobacco use disorder F17.200 Active Problem Adult BMI 36.0-36.9 kg/sq m Z68.36 Active Problem Mixed hyperlipidemia E78.2 Active Problem HTN, goal below 140/90 I10 Active Problem Former heavy tobacco smoker Z87.891 Active Medications No Known Medications Results No Known Results Summary Purpose [employer] Submission
--- OUTSIDE RECORDS SUMMARY | 2019-06-03 15:17 | XMS REPORT ---
:1980 Author Organization [employer] Care Team Providers Name Role Phone [facility] Provider Role Unavailable Allergies, Adverse Reactions, Alerts Substance Reaction Event Type N.K.D.A. Info Not Available Non Drug Allergy Problems Problem Type Condition Code Onset Dates Condition Status Assessment HTN, goal below 140/90 I10 Active Assessment Migraine without aura and without G43.009 Active status migrainosus, not intractable Assessment Adult BMI 36.0-36.9 kg/sq m Z68.36 Active Assessment Near syncope R55 Active Assessment Tobacco use disorder F17.200 Active Problem GERD without esophagitis K21.9 Active [...] Start End Status Dosage System Date Date Chantix ND 00375143593 1 MG Orally Active 1 tablet Continuing Month Twice a day Rodrick Lisinopril [facility] 11235347623 5 MG Orally Active 1 tablet Once a day Chantix Starting ND 27642577246 0.5 MG X 11 & 1 Active as directed Month Rodrick MG X 42 Orally use as directed Sumatriptan ND 91416403890 50 MG Orally Active 1 tablet as Succinate Once a day needed at onset of severe cooley. may repeat after 2 hours x 1 max 2 tabs/24 hours Aspir-81 [facility] 54607390922 81 MG Orally Active 1 tablet Once a day Atorvastatin ND 46318391752 40 MG Orally Active 1 tablet Calcium Once a day Propranolol HCl ND 65200978598 120 MG Orally Active 1 capsule ER Once a day Topamax [facility] 52082206090 25 MG Orally Active 1 tablet Once a day Results No Known Results Summary Purpose [employer] Submission
--- OUTSIDE RECORDS SUMMARY | 2019-06-03 15:18 | XMS REPORT ---
:1980 Author Organization [employer] Care Team Providers Name Role Phone Diaz Landon Provider Role Unavailable Allergies No Known Allergies Problems Problem Type Condition Code Onset Dates Condition Status Problem Mixed hyperlipidemia E78.2 Active Problem Adult BMI 36.0-36.9 kg/sq m Z68.36 Active Problem HTN, goal below 140/90 I10 Active Problem Repetitive intrusions of sleep G47.9 Active Problem Daytime somnolence R40.0 Active Problem Loss of balance R26.89 Active Problem Migraine without aura and without G43.009 Active status migrainosus, not intractable Problem Former heavy tobacco smoker Z87.891 Active Problem Tobacco use disorder F17.200 Active Problem GERD without esophagitis K21.9 Active Medications No Known Medications Results No Known Results Summary Purpose [employer] Submission
--- OUTSIDE RECORDS SUMMARY | 2019-06-03 15:18 | XMS REPORT ---
:1980 Author Organization eClinicalWorks Care Team Providers Name Role Phone Joe Landon Provider Role Unavailable Allergies, Adverse Reactions, Alerts Substance Reaction Event Type N.K.D.A. Info Not Available Non Drug Allergy Problems Problem Type Condition Code Onset Dates Condition Status Problem Adult BMI 36.0-36.9 kg/sq m Z68.36 Active Problem Mixed hyperlipidemia E78.2 Active Problem Repetitive intrusions of sleep G47.9 Active Problem Tobacco use disorder F17.200 Active Problem Daytime somnolence R40.0 Active Problem HTN, goal below 140/90 I10 Active Problem Former heavy tobacco smoker Z87.891 Active Problem GERD without esophagitis K21.9 Active Problem Migraine without aura and without G43.009 Active status migrainosus, not intractable Assessment Daytime somnolence R40.0 Active Assessment Mixed hyperlipidemia E78.2 Active Assessment Repetitive intrusions of sleep G47.9 Active Assessment Fatigue, unspecified type R53.83 Active Assessment Tobacco use disorder F17.200 Active Assessment Prediabetes R73.03 Active Assessment Adult BMI 36.0-36.9 kg/sq m Z68.36 Active Assessment HTN, goal below 140/90 I10 Active Assessment Near syncope R55 Active Assessment Migraine without aura and without G43.009 Active status migrainosus, not intractable Medications Medication Code Code Instructions Start End Status Dosage System Date Date Topamax [facility] 12851378828 25 MG Orally Active 1 tablet Once a day Chantix ND 38378096449 1 MG Orally Active 1 tablet Continuing Month Twice a day Rodrick Lisinopril ND 97901780953 5 MG Orally Active 1 tablet Once a day Sumatriptan ND 28325501578 50 MG Orally Active 1 tablet Succinate Once a day as needed at onset of severe cooley. may repeat after 2 hours x 1 max 2 tabs/24 hours Propranolol HCl ND 47119653422 120 MG Orally Active 1 capsule ER Once a day Atorvastatin ND 64700020167 40 MG Orally Active 1 tablet Calcium Once a day Aspir-81 [facility] 98428443286 81 MG Orally Active 1 tablet Once a day Results No Known Results Summary Purpose eClinicalWorks Submission
--- OUTSIDE RECORDS SUMMARY | 2019-06-03 15:18 | XMS REPORT ---
[...] G43.009 Active status migrainosus, not intractable Medications No Known Medications Results No Known Results Summary Purpose eClinicalWorks Submission
--- OUTSIDE RECORDS SUMMARY | 2019-06-03 15:18 | XMS REPORT ---
[...] Problem Repetitive intrusions of sleep G47.9 Active Assessment Fatigue, unspecified type R53.83 Active Problem Daytime somnolence R40.0 Active Assessment Repetitive intrusions of sleep G47.9 Active Problem Loss of balance R26.89 Active Problem Migraine without aura and without G43.009 Active status migrainosus, not intractable Problem Former heavy tobacco smoker Z87.891 Active Problem Tobacco use disorder F17.200 Active Problem GERD without esophagitis K21.9 Active Assessment Adult BMI 36.0-36.9 kg/sq m Z68.36 Active Assessment Near syncope R55 Active Assessment Daytime somnolence R40.0 Active Assessment Mixed hyperlipidemia E78.2 Active Assessment HTN, goal below 140/90 I10 Active Assessment Migraine without aura and without G43.009 Active status migrainosus, not intractable Assessment Tobacco use disorder F17.200 Active Assessment Loss of balance R26.89 Active Assessment Prediabetes R73.03 Active Medications Medication Code Code Instructions Start End Status Dosage System Date Date Sumatriptan [facility] 69986628656 50 MG Orally Active 1 tablet Succinate Once a day as needed at onset of severe cooley. may repeat after 2 hours x 1 max 2 tabs/24 hours Aspir-81 [facility] 03968124051 81 MG Orally Active 1 tablet Once a day Lisinopril [facility] 50621990901 5 MG Orally Active 1 tablet Once a day Propranolol HCl [facility] 98382101209 120 MG Orally Active 1 capsule ER Once a day Atorvastatin [facility] 03515251020 40 MG Orally Active 1 tablet Calcium Once a day Topamax [facility] 35394563441 25 MG Orally Active 1 tablet Once a day Lisinopril [facility] 40048647079 5 MG Active TAKE 1 TABLET BY MOUTH ONCE DAILY FOR 30 DAYS Chantix [facility] 28138286430 1 MG Orally Active 1 tablet Continuing Month Twice a day Rodrick Results No Known Results Summary Purpose eClinicalWorks Submission
--- OUTSIDE RECORDS SUMMARY | 2019-06-03 15:18 | XMS REPORT ---
:1980 Author Organization eClinicalWorks Care Team Providers Name Role Phone Jade Diazh Provider Role Unavailable Allergies, Adverse Reactions, Alerts Substance Reaction Event Type N.K.D.A. Info Not Available Non Drug Allergy Problems Problem Type Condition Code Onset Dates Condition Status Problem HTN, goal below 140/90 I10 Active Problem Former heavy tobacco smoker Z87.891 Active Problem Adult BMI 36.0-36.9 kg/sq m Z68.36 Active Problem Loss of balance R26.89 Active Assessment Mixed hyperlipidemia E78.2 Active Problem Repetitive intrusions of sleep G47.9 Active Assessment Fatigue, unspecified type R53.83 Active Problem Obstructive sleep apnea of adult G47.33 Active Problem GERD without esophagitis K21.9 Active Problem Migraine without aura and without G43.009 Active status migrainosus, not intractable Problem Daytime somnolence R40.0 Active Problem Tobacco use disorder F17.200 Active Assessment Tobacco use disorder F17.200 Active Assessment Prediabetes R73.03 Active Assessment Adult BMI 36.0-36.9 kg/sq m Z68.36 Active Assessment Near syncope R55 Active Assessment Loss of balance R26.89 Active Assessment Obstructive sleep apnea of adult G47.33 Active Assessment HTN, goal below 140/90 I10 Active Assessment Migraine without aura and without G43.009 Active status migrainosus, not intractable Problem Mixed hyperlipidemia E78.2 Active Medications Medication Code Code Instructions Start End Status Dosage System Date Date Chantix [facility] 32699301174 1 MG Orally Active 1 tablet Continuing Twice a day Month Rodrick Propranolol HCl [facility] 15227689587 120 MG Orally Active 1 capsule ER Once a day Aspir-81 [facility] 43585992304 81 MG Orally Active 1 tablet Once a day Lisinopril [facility] 42525469007 5 MG Orally Active 1 tablet Once a day Topamax [facility] 68008819447 25 MG Orally Inactive 1 tablet Once a day Atorvastatin [facility] 18513684206 40 MG Orally Active 1 tablet Calcium Once a day Sumatriptan [facility] 32848489611 50 MG Orally Active 1 tablet Succinate Once a day as needed at onset of severe cooley. may repeat after 2 hours x 1 max 2 tabs/24 hours Results No Known Results Summary Purpose eClinicalWorks Submission
[2019-06-03] MEDS ORDERED: PROPRANOLOL HCL 40 MG TAB PO ONE (17:00)
--- NOTE | 2019-06-03 17:19 | ER ---
Nurse's Notes [facility] Name: Kem Liz Age: 39 yrs Sex: Male : 1980 Arrival Date: 06/03/2019 Time: 15:18 Bed 13 Private MD: Diagnosis: Malaise and fatigue;Acute pharyngitis Presentation: 06/02 15:37 Chief complaint: Patient states: swelling to right neck area, temp of 99.7 at home, iw cough, headache, feels tired, has diff swallowing since Tuesday. Coronavirus screen: Surgical mask placed on patient. Patient moved to private room, placed in contact and droplet isolation with eye protection until further assessment. Patient reports a cough. Patient reports a measured and/or subjective temperature greater than 100.4F. Patient denies travel on a cruise ship or to a country the [facility] currently lists as an affected area. Patient denies contact with known and/or suspected case of COVID-19. Ebola Screen: Patient negative for fever greater than or equal to 101.5 degrees Fahrenheit, and additional compatible Ebola Virus Disease symptoms Patient denies exposure to infectious person. Patient denies travel to an Ebola-affected area in the 21 days before illness onset. No symptoms or risks identified at this time. Initial Sepsis Screen: Does the patient meet any 2 criteria? No. Patient's initial sepsis screen is negative. Does the patient have a suspected source of infection?. Risk Assessment: Do you want to hurt yourself or someone else? Patient reports no desire to harm self or others. Onset of symptoms was May 31, 2019. 15:37 Method Of Arrival: Ambulatory iw 15:37 Acuity: CHARLEEN 3 iw Triage Assessment: 15:40 General: Appears in no apparent distress. comfortable, Behavior is cooperative, bp appropriate for age, anxious. Pain: Complains of pain in neck. EENT: Throat is reddened. Neuro: No deficits noted. Cardiovascular: No deficits noted. Respiratory: No deficits noted. GI: No signs and/or symptoms were reported involving the gastrointestinal system. : No signs and/or symptoms were reported regarding the genitourinary system. Derm: No deficits noted. Musculoskeletal: No deficits noted. Historical: - Allergies: 15:42 NKA; iw - PMHx: 15:42 Hyperlipidemia; Hypertension; iw - Immunization history:: Adult Immunizations. - Social history:: Smoking status: Patient/guardian denies using tobacco, Stopped _ months ago 3. Screenin:42 Abuse screen: Denies threats or abuse. Denies injuries from another. Nutritional bp screening: No deficits noted. Tuberculosis screening: No symptoms or risk factors identified. Fall Risk None identified. Assessment: 15:42 General: SEE TRIAGE NOTE. bp 17:06 Reassessment: AWAITING MED DELIVERY FROM PHARMACY, ALL OTHER ORDERS COMPLETED. bp 17:45 Reassessment: PT D/C HOME AMBULATORY ON HOME QUARANTINE. PT DX WITH ACUTE PHARYNGITIS. bp Vital Signs: 15:37 BP 154 / 105; Pulse 105; Resp 18 S; Temp 97.6; Pulse Ox 98% on R/A; Weight 127.01 kg; iw Height 5 ft. 10 in. (177.80 cm); 16:15 BP 151 / 84; Pulse 104; Resp 16; Pulse Ox 99% ; bp 17:04 BP 168 / 107; Pulse 98; Resp 16; Pulse Ox 98% ; bp 15:37 Body Mass Index 40.18 (127.01 kg, 177.80 cm) iw ED Course: 15:18 Patient arrived in ED. ag5 15:29 Shanon G[facility]me[facility] F[facility]-C [facility]. snw 15:29 Aries Billingsley MD is Attending Physician. snw 15:35 Saud Nails, VAL is Primary Nurse. bp 15:40 Triage completed. iw 15:42 Patient has correct armband on for positive identification. Bed in low position. Call bp light in reach. Side rails up X2. 17:46 No provider procedures requiring assistance completed. Patient did not have IV access bp during this emergency room visit. 18:28 Health Dept notified/ COVID test sent to lab/ PUI pending. eb Administered Medications: 17:30 Drug: Propranolol 40 mg Route: PO; bp 17:48 Follow up: Response: No adverse reaction bp Outcome: 17:19 Discharge ordered by . snw 17:47 Discharged to home ambulatory. bp 17:47 Condition: stable 17:47 Discharge instructions given to patient, Instructed on discharge instructions, follow up and referral plans. Demonstrated understanding of instructions, follow-up care. 17:48 Patient left the ED. bp Addendum: 06/06/2019 11:17 Addendum: Other Pt notified of negative COVID-19 swab results. Pt advised to remain in d m5 isolation until fever free for 72 hours or 7 days from symptom onset, continue to monitor symptoms and to return if symptoms worsen. Signatures: Meagan Martinez RN RN dm5 Shanon Gómez, DIRECT OF REAL ESTATE-C DIRECT OF REAL ESTATE-Csnw Charity Vyas RN RN iw Peltier, Brian RN Janeen Lazaro [facility]
--- NOTE | 2019-06-03 17:19 | EDPHYS ---
Physician Documentation [facility] Name: Kem Liz Age: 39 yrs Sex: Male : 1980 Arrival Date: 06/03/2019 Time: 15:18 Bed 13 Private MD: ED Physician Aries Billingsley HPI: 06/02 15:59 This 39 yrs old Male presents to ER via Ambulatory with complaints of Neck snw Swelling. 15:59 The patient or guardian complains of pain, that is acute. The symptoms are located on snw the right submandibular area, right lateral aspect of neck and right anterior aspect of neck. Onset: The symptoms/episode began/occurred gradually, 3 day(s) ago, and became persistent. Context: The problem was sustained at home. Associated signs and symptoms: The patient has no apparent associated signs or symptoms. Modifying factors: The symptoms are alleviated by nothing. Severity of symptoms: At their worst the symptoms were moderate. The patient has not experienced similar symptoms in the past. It is unknown whether or not the patient has recently seen a physician, last pt saw PCP, Dr. Diaz, he decreased Propranolol from 120mg to 40mg. Pt states pressure has been elevated since. Historical: - Allergies: 15:42 NKA; iw - PMHx: 15:42 Hyperlipidemia; Hypertension; iw - Immunization history:: Adult Immunizations. - Social history:: Smoking status: Patient/guardian denies using tobacco, Stopped _ months ago 3. ROS: 15:58 Eyes: Negative for injury, pain, redness, and discharge. snw 15:58 Neck: Negative for injury, pain, and swelling. 15:58 Abdomen/GI: Negative for abdominal pain, nausea, vomiting, diarrhea, and constipation, Back: Negative for injury and pain, : Negative for injury, bleeding, discharge, and swelling, MS/Extremity: Negative for injury and deformity, Skin: Negative for injury, rash, and discoloration. 15:58 Psych: Negative for depression, anxiety, suicide ideation, homicidal ideation, and hallucinations. 15:58 Constitutional: Positive for body aches, fatigue, fever, malaise. 15:58 ENT: Positive for sore throat, right lateral neck lymph node tenderness. 15:58 Cardiovascular: Positive for palpitations. 15:58 Respiratory: Positive for cough, with no reported sputum, Negative for shortness of breath. 15:58 Neuro: Positive for headache. Exam: 15:53 Constitutional: This is a well developed, well nourished patient who is awake, alert, snw and in no acute distress. Head/Face: Normocephalic, atraumatic. Eyes: Pupils equal round and reactive to light, extra-ocular motions intact. Lids and lashes normal. Conjunctiva and sclera are non-icteric and not injected. Cornea within normal limits. Periorbital areas with no swelling, redness, or edema. Neck: Trachea midline, no thyromegaly or masses palpated, and no cervical lymphadenopathy. Supple, full range of motion without nuchal rigidity, or vertebral point tenderness. No Meningismus. 15:53 Chest/axilla: Normal chest wall appearance and motion. Nontender with no deformity. No lesions are appreciated. 15:53 Respiratory: Lungs have equal breath sounds bilaterally, clear to auscultation and percussion. No rales, rhonchi or wheezes noted. No increased work of breathing, no retractions or nasal flaring. Abdomen/GI: Soft, non-tender, with normal bowel sounds. No distension or tympany. No guarding or rebound. No evidence of tenderness throughout. Back: No spinal tenderness. No costovertebral tenderness. Full range of motion. Skin: Warm, dry with normal turgor. Normal color with no rashes, no lesions, and no evidence of cellulitis. MS/ Extremity: Pulses equal, no cyanosis. Neurovascular intact. Full, normal range of motion. Neuro: Awake and alert, GCS 15, oriented to person, place, time, and situation. Cranial nerves II-XII grossly intact. Motor strength 5/5 in all extremities. Sensory grossly intact. Cerebellar exam normal. Normal gait. Psych: Awake, alert, with orientation to person, place and time. Behavior, mood, and affect are within normal limits. 15:53 ENT: External ear(s): are unremarkable, Ear canal(s): are normal, TM's: are normal, Nose: is normal, Mouth: is normal, Posterior pharynx: erythema, that is moderate, greater to right posterior pharynx. 15:53 Cardiovascular: Rate: tachycardic, Rhythm: regular, Pulses: no pulse deficits are appreciated. Vital Signs: 15:37 BP 154 / 105; Pulse 105; Resp 18 S; Temp 97.6; Pulse Ox 98% on R/A; Weight 127.01 kg; iw Height 5 ft. 10 in. (177.80 cm); 16:15 BP 151 / 84; Pulse 104; Resp 16; Pulse Ox 99% ; bp 17:04 BP 168 / 107; Pulse 98; Resp 16; Pulse Ox 98% ; bp 15:37 Body Mass Index 40.18 (127.01 kg, 177.80 cm) iw MDM: 15:29 Patient medically screened. snw 17:25 Data reviewed: vital signs, nurses notes. Data interpreted: Pulse oximetry: on room air snw is 98 %. Interpretation: normal. Counseling: I had a detailed discussion with the patient and/or guardian regarding: the historical points, exam findings, and any diagnostic results supporting the discharge/admit diagnosis, the presence of at least one elevated blood pressure reading (>120/80) during this emergency department visit, lab results, the need for outpatient follow up, for definitive care, to return to the emergency department if symptoms worsen or persist or if there are any questions or concerns that arise at home. Special discussion: I have referred the patient to see his PCP for further evaluation of high blood pressure. Based on the history and exam findings, there is no indication for further emergent testing or inpatient evaluation. I discussed with the patient/guardian the need to see the primary care provider for further evaluation of the symptoms. 06/02 15:38 Order name: COVID-19 snw 06/02 15:38 Order name: Flu; Complete Time: 17:12 snw 06/02 15:38 Order name: Strep; Complete Time: 17:12 snw 06/02 15:38 Order name: Droplet/Contact Precautions; Complete Time: 15:39 snw 06/02 17:09 Order name: Throat Culture EDMS 06/02 15:38 Order name: Labs collected and sent; Complete Time: 15:43 snw 06/02 15:38 Order name: O2 Per Protocol; Complete Time: 15:43 snw Administered Medications: 17:30 Drug: Propranolol 40 mg Route: PO; bp 17:48 Follow up: Response: No adverse reaction bp Disposition: 18:27 Co-signature as Attending Physician, Aries Billingsley MD. rn Disposition: 06/03/19 17:19 Discharged to Home. Impression: Malaise and fatigue, Acute pharyngitis. - Condition is Stable. - Discharge Instructions: Fever, Adult, Pharyngitis, Fatigue, Rehydration, Adult. - Work release form, Medication Reconciliation Form, Thank You Letter, Antibiotic Education, Prescription Opioid Use form. - Follow up: Emergency Department; When: As needed; Reason: Worsening of condition. Follow up: Private Physician; When: 2 - 3 days; Reason: Recheck today's complaints, Continuance of care, Re-evaluation by your physician. - Notes: Quarantine x 2 weeks. Please avoid Tylenol. Covid 19 test sent and results will be called to you. Signatures: Dispatcher [employer] EDMS Shanon Gómez, FAUSTO-C BEAN WEIGHER-Csnw Charity Vyas, Aries Sanford RN, MD MD rn Peltier, Brian RN RN bp Corrections: (The following items were deleted from the chart) 17:48 17:19 06/03/2019 17:19 Discharged to Home. Impression: Malaise and fatigue; Acute bp pharyngitis. Condition is Stable. Forms are Medication Reconciliation Form, Thank You Letter, Antibiotic Education, Prescription Opioid Use. Follow up: Emergency Department; When: As needed; Reason: Worsening of condition. Follow up: Private Physician; When: 2 - 3 days; Reason: Recheck today's complaints, Continuance of care, Re-evaluation by your physician. snw
[2019-06-03 18:23] VITALS: TEMP 97.6
[2019-06-03 18:26] VITALS: BP 168/107; O2SAT 98
== END 2019-06-03 17:48 | disposition home or self-care (01) ==
LOC: ER 15:15
DX: J02.9 Acute pharyngitis, unspecified (principal); R53.1 Weakness; R53.83 Other fatigue; Z03.818 Encounter for observation for suspected exposure to other biological agents ruled out
CPT/HCPCS: 87070; 87081; 87804 ×2; 99283; U0001